=== PATIENT | female | born 1940 | race Caucasian/White ===

== ENCOUNTER 2018-05-06 17:52 | Inpatient (IN) ==
[2018-05-06] MEDS ORDERED: 0.9 % Sodium Chloride 1,000 ML IVC ONE ×2 (18:16→19:01)
[2018-05-06] MEDS ORDERED: cefTRIAXone 2,000 MG in 0.9 % Sodium Chloride Mini Bag 100 ML IVPB ONE (18:18)
[2018-05-06] MEDS ORDERED: Piperacillin/Tazobactam 3.375 GM in 0.9 % Sodium Chloride Mini Bag 100 ML IVPB ONE (18:20)
[2018-05-06] MEDS ORDERED: Ketorolac 30 MG/ML VIAL IVP ONE (18:20)
--- NOTE | 2018-05-06 18:20 | Emergency Department Note ---
Disposition Clinical Impression: Elevated troponin Right upper lobe pneumonia Qualifiers: Pneumonia type: due to unspecified organism Qualified Code(s): J18.1 - Lobar pneumonia, unspecified organism Disposition: Admitted As Inpatient Condition: Good General Adult HPI - General Chief complaint: ED Neuro Symptoms/Deficit Stated complaint: difficulty talking,congestion Time Seen by Provider: 05/06/18 18:16 - History of Present Illness Pain Scale: 0 - Related Data Home Medications Medication Instructions Recorded Confirmed ARIPiprazole [Abilify] 2 mg PO DAILY 12/26/16 05/06/18 Cholecalciferol (D-3) [Vitamin D] 1,000 unit PO DAILY 12/26/16 05/06/18 Flaxseed Oil 1,000 mg PO DAILY 12/26/16 05/06/18 LORazepam [Ativan] 2 mg PO BID 12/26/16 05/06/18 Lansoprazole [Prevacid] 15 mg PO BIDAC 12/26/16 05/06/18 Magnesium Oxide [Magnesium] 400 mg PO DAILY 12/26/16 05/06/18 Niacin [Niaspan] 500 mg PO BID 12/26/16 05/06/18 Propranolol HCl [Innopran Xl] 120 mg PO BID 12/26/16 05/06/18 Topiramate [Topamax] 25 mg PO DAILY 12/26/16 05/06/18 Buspirone HCl [Buspar] 15 mg PO BID 05/06/18 05/06/18 Methylphenidate HCl [Ritalin] 10 mg PO DAILY 05/06/18 05/06/18 SUMAtriptan succinate [Imitrex] 50 mg PO DAILY PRN 05/06/18 05/06/18 Previous Rx's Medication Instructions Recorded Exemestane [Aromasin] 25 mg PO DAILY #90 tablet 09/04/17 Allergies Allergy/AdvReac Type Severity Reaction Status Date / Time No Known Allergies Allergy Verified 05/06/18 18:08 Course Vital Signs Temperature 103.1 F H 05/06/18 18:03 Pulse Rate 94 05/06/18 18:03 Respiratory Rate 18 05/06/18 18:03 Blood Pressure 140/97 05/06/18 18:03 O2 Sat by Pulse Oximetry 92 05/06/18 18:03 Temperature 100.4 F H 05/06/18 18:34 Pulse Rate 78 05/06/18 20:23 Respiratory Rate 16 05/06/18 20:23 Blood Pressure 100/53 05/06/18 20:23 O2 Sat by Pulse Oximetry 94 05/06/18 20:23 Oxygen Delivery Oxygen Delivery Room Air Medical Decision Making - Lab Data Result diagrams: 05/06/18 18:40 05/06/18 18:40 Lab Results 05/06/18 05/06/18 05/06/18 Range/Units 18:40 18:40 18:40 WBC 23.0 H (4.3-11.1) K/mcL RBC 5.69 H (3.82-4.97) M/mcL Hgb 16.0 H (11.5-15.4) g/dL Hct 47.9 H (35.3-44.9) % MCV 84.2 (83.0-100.0) fL MCH 28.1 (28.0-33.3) pg MCHC 33.4 (31.6-35.5) g/dL RDW 14.6 H (11.5-14.5) % Plt Count 222 (140-400) K/mcL MPV 11.4 (9.4-12.4) fL Immature Gran % 1.3 (0-4) % Seg Neutrophils % 86.4 % Lymphocytes % 5.3 % Monocytes % 6.7 % Eosinophils % 0.0 % Basophils % 0.3 % Neutrophils # 19.9 H (1.6-8.9) K/mcL Lymphocytes # 1.2 (0.6-4.6) K/mcL Monocytes # 1.5 H (0.0-1.3) K/mcL Eosinophils # 0.0 (0.0-0.6) K/mcL Basophils # 0.1 (0.0-0.2) K/mcL PT 15.3 H (9.4-12.1) Seconds INR 1.4 APTT 32.2 (26.0-36.0) Seconds Sodium 135 L (136-145) mEq/L Potassium 2.5 L* (3.5-5.1) mEq/L Chloride 91 L (98-107) mEq/L Carbon Dioxide 30 H (23-29) mEq/L BUN 17 (8-23) mg/dL Creatinine 1.34 H (0.60-1.20) mg/dL Est GFR ( Amer) 46 L (> 60) Est GFR (Non-Af Amer) 38 L (> 60) BUN/Creatinine Ratio 13 (6-26) Glucose 146 H (70-105) mg/dL Calculated Osmolality 284 (280-300) Calcium 9.6 (8.6-10.3) mg/dL Total Bilirubin 3.2 H (0.3-1.0) mg/dL Direct Bilirubin 1.5 H (0.0-0.2) mg/dL Indirect Bilirubin 1.7 H (0.0-1.2) mg/dL AST 25 (13-39) Units/L ALT 15 (7-52) Units/L Alkaline Phosphatase 83 (34-104) Units/L Ammonia (16-53) mcmol/L Troponin I 0.10 H* (< 0.04) ng/mL Serum Total Protein 7.3 (6.4-8.9) g/dL Albumin 3.8 (3.5-5.7) g/dL Globulin 3.5 (2.4-3.5) g/dL Albumin/Globulin Ratio 1.1 (1.1-2.2) TSH 1.143 (0.340-5.600) mcIU/mL Urine Color (Yellow) Urine Clarity (Clear) Urine pH (5.0-8.0) pH Units Ur Specific [place] (1.010-1.025) Urine Protein (Neg-Trace) mg/dL Urine Glucose (UA) (Normal) mg/dL Urine Ketones (Negative) mg/dL Urine Blood (Negative) Urine Nitrite (Negative) Urine Bilirubin (Negative) Urine Urobilinogen (Normal) mg/dL Ur Leukocyte Esterase (Negative) Ur Drug Screen Interp 05/06/18 05/06/18 05/06/18 Range/Units 18:40 20:03 20:03 WBC (4.3-11.1) K/mcL RBC (3.82-4.97) M/mcL Hgb (11.5-15.4) g/dL Hct (35.3-44.9) % MCV (83.0-100.0) fL MCH (28.0-33.3) pg MCHC (31.6-35.5) g/dL RDW (11.5-14.5) % Plt Count (140-400) K/mcL MPV (9.4-12.4) fL Immature Gran % (0-4) % Seg Neutrophils % % Lymphocytes % % Monocytes % % Eosinophils % % Basophils % % Neutrophils # (1.6-8.9) K/mcL Lymphocytes # (0.6-4.6) K/mcL Monocytes # (0.0-1.3) K/mcL Eosinophils # (0.0-0.6) K/mcL Basophils # (0.0-0.2) K/mcL PT (9.4-12.1) Seconds INR APTT (26.0-36.0) Seconds Sodium (136-145) mEq/L Potassium (3.5-5.1) mEq/L Chloride (98-107) mEq/L Carbon Dioxide (23-29) mEq/L BUN (8-23) mg/dL Creatinine (0.60-1.20) mg/dL Est GFR ( Amer) (> 60) Est GFR (Non-Af Amer) (> 60) BUN/Creatinine Ratio (6-26) Glucose (70-105) mg/dL Calculated Osmolality (280-300) Calcium (8.6-10.3) mg/dL Total Bilirubin (0.3-1.0) mg/dL Direct Bilirubin (0.0-0.2) mg/dL Indirect Bilirubin (0.0-1.2) mg/dL AST (13-39) Units/L ALT (7-52) Units/L Alkaline Phosphatase (34-104) Units/L Ammonia 22 (16-53) mcmol/L Troponin I (< 0.04) ng/mL Serum Total Protein (6.4-8.9) g/dL Albumin (3.5-5.7) g/dL Globulin (2.4-3.5) g/dL Albumin/Globulin Ratio (1.1-2.2) TSH (0.340-5.600) mcIU/mL Urine Color [place] A (Yellow) Urine Clarity Cloudy A (Clear) Urine pH 5.5 (5.0-8.0) pH Units Ur Specific [place] 1.022 (1.010-1.025) Urine Protein >=300 H (Neg-Trace) mg/dL Urine Glucose (UA) 100 H (Normal) mg/dL Urine Ketones 15 H (Negative) mg/dL Urine Blood Large H (Negative) Urine Nitrite Positive A (Negative) Urine Bilirubin Moderate H (Negative) Urine Urobilinogen Normal (Normal) mg/dL Ur Leukocyte Esterase Moderate H (Negative) Ur Drug Screen Interp See Below Critical Care Time Critical Care Time: Yes Total Critical Care Time: 33 Attestation: acute altered mental status; Attestation Statement - Attestation Attestation: Dr Starks : Pt seen in conjunction w/ Resident DR Hawkins; Please see his charting for complete documentation; I spent face to face time w/ the pt and agree w/ the pt 's treatment and disposition; pt admitted w/o hypoxia or tachypnea; decreased activity since yesterday, and slow to respond today; no focal neuro signs/sx; accepted by Dr Garrison @ 7:15 pm; Altered mental status improved; infiltrate noted on x ray; No chest pain; no n/v/d; elevated troponin noted; K+ noted; altered mental status since this am noted, intermittent, improved mental status ; poor focus/slow to respond @ home;
[2018-05-06] MEDS ORDERED: Ipratropium/Albuterol Neb 3 ML IH ONE (18:26)
[2018-05-06 18:57] LABS: Basophils # 0.1 K/mcL (0.0-0.2); Basophils % 0.3 %; Hematocrit 47.9 % (35.3-44.9); Immature Granulocytes % 1.3 % (0-4); Lymphocytes # 1.2 K/mcL (0.6-4.6); Lymphocytes % 5.3 %; Mean Corpuscular HGB Conc 33.4 g/dL (31.6-35.5); Mean Corpuscular Hemoglobin 28.1 pg (28.0-33.3); Mean Corpuscular Volume 84.2 fL (83.0-100.0); Mean Platelet Volume 11.4 fL (9.4-12.4); Monocytes # 1.5 K/mcL (0.0-1.3); Monocytes % 6.7 %; Neutrophils # 19.9 K/mcL (1.6-8.9); Platelet Count 222 K/mcL (140-400); Red Blood Count 5.69 M/mcL (3.82-4.97); Red Cell Distribution Width 14.6 % (11.5-14.5); Segmented Neutrophils % 86.4 %
[2018-05-06] MEDS ORDERED: Levofloxacin 750 MG/150 ML 750 MG/150 ML BAG IVPB ONE (19:00)
[2018-05-06 19:04] LABS: Prothrombin Time 15.3 Seconds (9.4-12.1)
[2018-05-06 19:05] LABS: INR 1.4
[2018-05-06 19:07] LABS: Activated Partial Thrombo Time 32.2 Seconds (26.0-36.0)
[2018-05-06 19:35] LABS: Albumin 3.8 g/dL (3.5-5.7); Albumin/Globulin Ratio 1.1 (1.1-2.2); Bilirubin,Direct 1.5 mg/dL (0.0-0.2); Bilirubin,Indirect 1.7 mg/dL (0.0-1.2); Bilirubin,Total 3.2 mg/dL (0.3-1.0); Calcium 9.6 mg/dL (8.6-10.3); Globulin 3.5 g/dL (2.4-3.5); Potassium 2.5 mEq/L (3.5-5.1); Thyroid Stimulating Hormone 1.143 mcIU/mL (0.340-5.600); Total Protein 7.3 g/dL (6.4-8.9)
[2018-05-06] MEDS ORDERED: Potassium Effervescent 25 MEQ TABLET.EFF PO ONE (19:52)
[2018-05-06] MEDS ORDERED: Aspirin 325 MG TABLET PO ONE (19:54)
[2018-05-06 20:20] LABS: Bilirubin,Urine Moderate (Negative); Blood,Urine Large (Negative); Clarity,Urine Cloudy (Clear); Color,Urine Orange (Yellow); Glucose,Urine (UA) 100 mg/dL (Normal); Ketones,Urine 15 mg/dL (Negative); Leukocyte Esterase,Urine Moderate (Negative); Nitrite,Urine Positive (Negative); PH,Urine 5.5 pH Units (5.0-8.0); Protein,Urine >=300 mg/dL (Neg-Trace); Specific Gravity,Urine 1.022 (1.010-1.025); Urobilinogen,Urine Normal (Normal)
[2018-05-06 20:24] LABS: Bacteria,Urine None Seen per hpf (None-Few); RBC,Urine 0-3 per hpf (0-3); Squamous Epithelial Cell,Urine Many per lpf (None-Few); WBC,Urine 30-50 per hpf (0-3)
[2018-05-06 20:44] LABS: Hyaline Casts,Urine Few per lpf (None-Few); Mucus,Urine Few (Few)
[2018-05-06 20:46] LABS: Amphetamine Screen,Urine Negative ng/mL (Cutoff=1000); Barbiturate Screen,Urine Negative ng/mL (Cutoff=200); Benzodiazepines Screen,Urine Positive ng/mL (Cutoff=200); Cannabinoid Screen,Urine Positive ng/mL (Cutoff = 50); Cocaine Screen,Urine Negative ng/mL (Cutoff= 300); Opiate Screen,Urine Positive ng/mL (Cutoff=300); Phencyclidine Screen,Urine Negative ng/mL (Cutoff=25)
[2018-05-06] MEDS ORDERED: Potassium Chloride 40 MEQ, Lidocaine 1% 2 ML in D5% in Water 500 ML IVPB ONE (21:45)
--- NOTE | 2018-05-06 22:08 | Internal Med History&Physical ---
<Jose Tellez Graham - Last Filed: 05/07/18 00:15> Date of Encounter: 05/07/18 Time of Encounter: 23:14 Internal Medicine - H&P: HPI Chief complaint: altered mental status Admitted From: Home Plans for Post Hospital Care: Home History of present illness: Ms. Dietrich is a 78 year old female with a past medical history of Depression, Hypertension, Breast Cancer, Hypercholesterolemia, Migraines who presented with the chief complaint of altered mental status. She was brought in by a family friend who states that for the past two days she has had trouble remembering things and completing sentences. At baseline she is A&Ox3. Denies slurred speech , facial droop, arm drop. Prior to this she has had 4-5 days of a chest cold. Admits to nonproductive cough, chest pain with cough but not with exertion or rest. Also complains of slight weakness. Patient's only surgical history is breast resection secondary to breast cancer. She does admit to intermittent tobacco use, moderate alcohol use and recreational marijuana use. Head CT in the emergency department was negative for acute process. Patient was febrile with temperature of 103, heart rate 92, white blood cell count 23. Chest x-ray in the emergency department showed right upper lobe opacification consistent with pneumonia. Urinalysis in the emergency department was significant for white blood cells and leukocyte esterase but also significant for squamous cells. EKG showed normal sinus rhythm with elevated voltage in the lateral leads consistent with left ventricular hypertrophy, not present on EKG from 2012. Troponin was elevated at 0.10. Potassium was reduced at 2.5, patient did receive 50 mEq oral potassium in the emergency department. One dose of Zosyn, 1 dose of Levaquin, 2 L normal saline were also given in the emergency department. Past Med Surg Social Fam HX - Family History Mother Hx Family Cardiac Disorders: Yes (pacemaker) Father Hx Family Cardiac Disorders: No Internal Medicine - H&P: Meds ARIPiprazole [Abilify] 2 mg PO DAILY 12/26/16 [History] Cholecalciferol (D-3) [Vitamin D] 1,000 unit PO DAILY 12/26/16 [History] Flaxseed Oil 1,000 mg PO DAILY 12/26/16 [History] LORazepam [Ativan] 2 mg PO BID 12/26/16 [History] Lansoprazole [Prevacid] 15 mg PO BIDAC 12/26/16 [History] Magnesium Oxide [Magnesium] 400 mg PO DAILY 12/26/16 [History] Niacin [Niaspan] 500 mg PO BID 12/26/16 [History] Propranolol HCl [Innopran Xl] 120 mg PO BID 12/26/16 [History] Topiramate [Topamax] 25 mg PO DAILY 12/26/16 [History] Exemestane [Aromasin] 25 mg PO DAILY #90 tablet 09/04/17 [Rx] Buspirone HCl [Buspar] 15 mg PO BID 05/06/18 [History] Methylphenidate HCl [Ritalin] 10 mg PO DAILY 05/06/18 [History] SUMAtriptan succinate [Imitrex] 50 mg PO DAILY PRN 05/06/18 [History] 3 Allergy/AdvReac Type Severity Reaction Status Date / Time No Known Allergies Allergy Verified 05/06/18 18:08 All Systems PM: A 10-system review of systems was performed and is negative for pertinent findings except as documented above in the HPI. - Constitutional Constitutional: fever(s), weakness - Cardiovascular Cardiovascular ROS IM: no dyspnea on exertion, no lightheadedness, no palpitations - Respiratory Respiratory: cough, pain with cough - Gastrointestinal Gastrointestinal: no abdominal pain - Genitourinary Genitourinary: no difficulty urinating, no urinary frequency, no urinary hesitancy, no urinary incontinence, no urinary urgency - Integumentary Integumentary IM: no rash - Neurological Neurological ROS: abnormal speech, memory loss, no abnormal movements, no behavioral changes, no focal weakness - Psychiatric Psychiatric: confusion - Constitutional Vitals: Temp Pulse Resp BP Pulse Ox 100.4 F H 77 18 122/73 92 05/06/18 18:34 05/06/18 21:39 05/06/18 21:39 05/06/18 21:39 05/06/18 21:39 Exam: Patient in no acute distress, alert and oriented 3 Cranial nerves II through XII intact Heart in regular rate and rhythm without murmur or gallop Lungs exhibited diffuse scattered wheeze and rhonchi with good expansion and no accessory muscle use Abdomen soft and nontender with normal bowel sounds and no organomegaly Bilateral lower extremities nonedematous Skin warm and dry Internal Med - H&P Results - Labs CBC & Chem 7: 05/06/18 18:40 05/06/18 18:40 - Assessment and plan (1) Sepsis Current Visit: Yes Status: Acute Assessment and plan: Patient presented for altered mental status with fever of 103, heart rate 92, white blood cell count 23, evidence for pneumonia on chest x-ray In the emergency department one dose of Zosyn, 1 dose of Levaquin, 2 L normal saline bolus were given Urinalysis positive for white blood cells and leukocyte esterase but also squamous cells Lactic acid 1.5 This is likely sepsis secondary to community-acquired pneumonia and possible UTI Plan Empiric antibiotics consisting of vancomycin, Zosyn, Levaquin Maintenance IV fluids 100 mL per hour Re-examine patient at 6 hours Qualifiers: Sepsis type: sepsis due to unspecified organism Qualified Code(s): A41.9 - Sepsis, unspecified organism (2) Right upper lobe pneumonia Current Visit: Yes Status: Acute Assessment and plan: Right upper lobe opacification found on chest x-ray Patient presented with chest cold 5 days with nonproductive cough Patient does not have aspiration risk and has not been hospitalized in the net last 90 days Exam significant for wheeze and rhonchi Plan Empiric antibiotics as seen above Qualifiers: Pneumonia type: due to unspecified organism Qualified Code(s): J18.1 - Lobar pneumonia, unspecified organism (3) UTI (urinary tract infection) Current Visit: Yes Status: Acute Assessment and plan: Patient is asymptomatic however did have altered mental status and abnormal UA on presentation Plan Empiric Antibiotics Repeat straight cath UA Qualifiers: Urinary tract infection type: acute cystitis Hematuria presence: without hematuria Qualified Code(s): N30.00 - Acute cystitis without hematuria (4) Altered mental status Current Visit: Yes Status: Acute Assessment and plan: Patient presented with witnessed altered mental status On my exam patient is alert and oriented 3 however family friend states that this patient has been forgetful and not completing sentences According to patient and family patient is A&Ox3 at baseline This is likely secondary to sepsis Head CT in the ED was negative for acute process Patient does not exhibit focal neuro deficits Plan Continue to monitor Qualifiers: Altered mental status type: disorientation Qualified Code(s): R41.0 - Disorientation, unspecified (5) Elevated troponin Current Visit: Yes Status: Acute Assessment and plan: Patient with elevated troponin of 0.10 on admission Patient does not complain of dyspnea on exertion, does complain of chest pain but only with cough Patient does not have cardiac history, she does mention remote cardiac procedure but she does not remember what it is, likely catheterization 1 dose aspirin given in the ED EKG and normal rate and rhythm with increased voltage and lateral leads consistent with left ventricular hypertrophy, new from 2011 Plan Cycle troponin every 6 hours Continuous Cardiac Monitoring Continue Monitoring (6) Hypertension Current Visit: Yes Status: Chronic Assessment and plan: Patient has chronic history of hypertension for which she takes propanolol Patient is not hypertensive here we will hold home med now and reevaluate and continue to monitor Qualifiers: Hypertension type: essential hypertension Qualified Code(s): I10 - Essential (primary) hypertension (7) Hyperlipidemia Current Visit: Yes Status: Chronic Assessment and plan: Patient has history of hyperlipidemia for which she takes nystatin We will hold nystatin here and reevaluate once stable Qualifiers: Hyperlipidemia type: unspecified Qualified Code(s): E78.5 - Hyperlipidemia , unspecified (8) Breast cancer, left breast Current Visit: No Status: Resolved Assessment and plan: Patient with history of breast cancer in remission for which she takes Aromasin We will hold home med here and reevaluate once stable Qualifiers: Breast location: unspecified site of breast Estrogen receptor status: unspecified Patient sex: female Qualified Code(s): C50.912 - Malignant neoplasm of unspecified site of left female breast (9) Hypokalemia Current Visit: Yes Status: Acute Assessment and plan: Patient presented with potassium of 2.5 50 mEq of oral potassium was given in the emergency department 40 mEq of IV potassium was given on the floor Magnesium ordered and pending Repeat chemistry pending Plan Continue to monitor chemistry and replace as necessary Patient on continuous cardiac monitoring (10) DVT prophylaxis Current Visit: Yes Status: Acute Assessment and plan: 5000 units subcutaneous heparin every 8 hours - Time Spent With Patient Total time spent is greater than 50% in coordination of care (as documented) at patient's floor/unit and/or counseling patient: <Buddy Jain - Last Filed: 05/07/18 07:55> Date of Encounter: 05/06/18 Internal Medicine - H&P: HPI History of present illness: Ms. Dietrich is a 78 year old female All Systems PM: A 10-system review of systems was performed and is negative for pertinent findings except as documented above in the HPI. - Constitutional Vitals: Temp Pulse Resp BP Pulse Ox 97.7 F 74 20 121/70 94 05/07/18 07:20 05/07/18 07:20 05/07/18 07:20 05/07/18 07:20 05/07/18 07:20 Internal Med - H&P Results - Labs CBC & Chem 7: 05/06/18 18:40 05/06/18 18:40 Labs: Cardiac Enzymes 05/07/18 05/07/18 Range/Units 01:05 06:49 Troponin I 0.09 H* 1.57 H* (< 0.04) ng/mL - Assessment and plan (1) Breast cancer, left breast Current Visit: No Status: Resolved Qualifiers: Breast location: unspecified site of breast Estrogen receptor status: unspecified Patient sex: female Qualified Code(s): C50.912 - Malignant neoplasm of unspecified site of left female breast (2) Right upper lobe pneumonia Current Visit: Yes Status: Acute Qualifiers: Pneumonia type: due to unspecified organism Qualified Code(s): J18.1 - Lobar pneumonia, unspecified organism (3) Elevated troponin Current Visit: Yes Status: Acute (4) Sepsis Current Visit: Yes Status: Acute Qualifiers: Sepsis type: sepsis due to unspecified organism Qualified Code(s): A41.9 - Sepsis, unspecified organism (5) UTI (urinary tract infection) Current Visit: Yes Status: Acute Qualifiers: Urinary tract infection type: acute cystitis Hematuria presence: without hematuria Qualified Code(s): N30.00 - Acute cystitis without hematuria (6) Hypertension Current Visit: Yes Status: Chronic Qualifiers: Hypertension type: essential hypertension Qualified Code(s): I10 - Essential (primary) hypertension (7) Hyperlipidemia Current Visit: Yes Status: Chronic Qualifiers: Hyperlipidemia type: unspecified Qualified Code(s): E78.5 - Hyperlipidemia , unspecified (8) Altered mental status Current Visit: Yes Status: Acute Qualifiers: Altered mental status type: disorientation Qualified Code(s): R41.0 - Disorientation, unspecified (9) Hypokalemia Current Visit: Yes Status: Acute (10) DVT prophylaxis Current Visit: Yes Status: Acute - Time Spent With Patient Total time spent is greater than 50% in coordination of care (as documented) at patient's floor/unit and/or counseling patient: - Attending Attestation Patient seen and examined. Case discussed with resident. Altered mental status in the absence of any focal findings and negative CT head likely secondary to underlying infectious process. We will treat more aggressively for community-acquired pneumonia given her elevated white blood cell count, fever and chest x-ray findings. Patient unable to produce any sputum at this time. Replete potassium and follow up chemistry. We will follow-up blood cultures. Elevated troponin in the absence of patient reported chest pain. Patient received loading dose of aspirin in the ED. We will trend troponin.
[2018-05-06 23:42] LABS: Magnesium 1.1 mg/dL (1.6-2.6)
[2018-05-07 00:08] LABS: Troponin I 0.1 ng/mL (< 0.04)
[2018-05-07] MEDS: Piperacillin/Tazobactam 3.375 GM in 0.9 % Sodium Chloride Mini Bag 100 ML IVPB SCH ×2 (00:12→08:36)
[2018-05-07] MEDS ORDERED: Naloxone 0.4 MG/ML INJ IVP PRN (00:36)
[2018-05-07] MEDS: 0.9 % Sodium Chloride 1,000 ML IVC SCH ×2 (01:28→14:29)
[2018-05-07] MEDS: *HR* Heparin 5,000 UNIT/ML VIAL SQ SCH ×3 (04:56→21:02)
[2018-05-07] MEDS: Benzonatate 100 MG CAPSULE PO PRN ×2 (04:56→14:26)
--- NOTE | 2018-05-07 06:06 | Sepsis Event Note ---
Sepsis Reassessment Note - Evaluation Sepsis Screen: No Definite Risk Current Stage of Sepsis: sepsis Possible Source of Sepsis: pulmonary - Focused Exam Date of Encounter: 05/07/18 Time of Encounter: 06:04 Vital Signs: Vital Signs Temp Pulse Resp BP Pulse Ox 05/07/18 04:00 98.0 F 74 20 108/68 95 05/07/18 00:22 77 20 120/61 94 05/06/18 21:39 98.1 F 77 18 122/73 92 Respiratory Exam: Present: wheezes, rhonchi. Absent: respiratory distress, accessory muscle use Cardiovascular Exam: Present: RRR. Absent: murmur, gallop Capillary Refill: < 2 seconds Peripheral Pulse Strength: 2+ slightly diminished Peripheral Pulse Location: Pedal Skin Exam: normal turgor - Reassessment Comments Comments: Patient clinically and hemodynamically stable, no longer tachycardic, afebrile
[2018-05-07] MEDS ORDERED: SUMAtriptan succinate 50 MG TABLET PO PRN (07:45)
[2018-05-07] MEDS ORDERED: Aminoglycoside Consult 1 EACH MC ONE (07:55)
[2018-05-07 08:17] LABS: Basophils # 0.1 K/mcL (0.0-0.2); Basophils % 0.3 %; Hematocrit 40.6 % (35.3-44.9); Hemoglobin 13.5 g/dL (11.5-15.4); Immature Granulocytes % 1.9 % (0-4); Lymphocytes # 1.6 K/mcL (0.6-4.6); Lymphocytes % 7.3 %; Mean Corpuscular HGB Conc 33.3 g/dL (31.6-35.5); Mean Corpuscular Hemoglobin 28.1 pg (28.0-33.3); Mean Corpuscular Volume 84.4 fL (83.0-100.0); Monocytes # 1.2 K/mcL (0.0-1.3); Monocytes % 5.6 %; Neutrophils # 18.8 K/mcL (1.6-8.9); Platelet Count 174 K/mcL (140-400); Red Blood Count 4.81 M/mcL (3.82-4.97); Red Cell Distribution Width 14.3 % (11.5-14.5); Segmented Neutrophils % 84.9 %
[2018-05-07] MEDS: Methylphenidate HCl 10 MG TABLET PO SCH (08:37)
[2018-05-07] MEDS: Propranolol LA (24 HR) 60 MG CAP.SA.24H PO SCH ×2 (08:37→21:02)
[2018-05-07 08:38] LABS: Albumin 2.9 g/dL (3.5-5.7); Albumin/Globulin Ratio 1.3 (1.1-2.2); Bilirubin,Total 2.8 mg/dL (0.3-1.0); Calcium 8.1 mg/dL (8.6-10.3); Globulin 2.3 g/dL (2.4-3.5); Total Protein 5.2 g/dL (6.4-8.9)
[2018-05-07] MEDS: Niacin (24 HR) 500 MG TAB.ER.24H PO SCH ×2 (08:38→21:02)
[2018-05-07] MEDS ORDERED: (Exemestane [Aromasin] 25 MG) PO SCH (09:00)
--- NOTE | 2018-05-07 10:12 | Internal Med Progress Note ---
Hospitalist Progress Note - Encounter Date of Encounter: 05/07/18 Time of Encounter: 09:00 - Subjective Interval History: Ms. Dietrich is a 78 year old female with a past medical history of Depression, Hypertension, Breast Cancer, Hypercholesterolemia, Migraines who presented with the chief complaint of altered mental status. She was brought in by a family friend who states that for the past two days she has had trouble remembering things and completing sentences. At baseline she is A&Ox3. Denies slurred speech , facial droop, arm drop. Prior to this she has had 4-5 days of a chest cold. Admits to nonproductive cough, chest pain with cough but not with exertion or rest. Also complains of slight weakness. Patient's only surgical history is breast resection secondary to breast cancer. She does admit to intermittent tobacco use, moderate alcohol use and recreational marijuana use. Head CT in the emergency department was negative for acute process. Patient was febrile with temperature of 103, heart rate 92, white blood cell count 23. Chest x-ray in the emergency department showed right upper lobe opacification consistent with pneumonia. Urinalysis in the emergency department was significant for white blood cells and leukocyte esterase but also significant for squamous cells. EKG showed normal sinus rhythm with elevated voltage in the lateral leads consistent with left ventricular hypertrophy, not present on EKG from 2012. Troponin was elevated at 0.10. Potassium was reduced at 2.5, patient did receive 50 mEq oral potassium in the emergency department. One dose of Zosyn, 1 dose of Levaquin, 2 L normal saline were also given in the emergency department. 05/07: Patient states she is having pleuritic chest pain with cough. Is a minimal productive cough. Mild shortness of breath. No fevers or chills. No nausea or vomiting. She denies any history of aspiration. She is much more alert today. He is currently denying any fevers or chills. She does state she feels very weak. ROS: Other than that mentioned above, a 10 point review of systems is negative. - Exam Vitals: Temp Pulse Resp BP Pulse Ox 97.7 F 74 20 121/70 94 05/07/18 07:20 05/07/18 07:20 05/07/18 07:20 05/07/18 07:20 05/07/18 07:20 Exam: Patient in no acute distress, alert and oriented 3, fatigued appearing Cranial nerves II through XII intact Heart in regular rate and rhythm without murmur or gallop Lungs exhibited diffuse scattered wheeze and rhonchi with good expansion and no accessory muscle use. Abdomen soft and nontender with normal bowel sounds and no organomegaly Bilateral lower extremities nonedematous Skin warm and dry Cap refill <2.5 sec Neuro Nonfocal - Assessment and Plan (1) Right upper lobe pneumonia Current Visit: Yes Status: Acute Assessment and Plan: Right upper lobe opacification found on chest x-ray Patient presented with chest cold 5 days with nonproductive cough Patient does not have aspiration risk and has not been hospitalized in the net last 90 days Exam significant for wheeze and rhonchi Plan Empiric antibiotics as seen above 05/07: No hx aspiration Day #2 Abx Zosyn/Rocpehin/Vancomycin/Levaquin received since admission I will de-escalate abx to Levaquin alone, now day #2 abx Request swallow eval to eval for aspiration risk Add mucolytic (2) Breast cancer, left breast Current Visit: No Status: Resolved Assessment and Plan: Patient with history of breast cancer in remission for which she takes Aromasin We will hold home med here and reevaluate once stable (3) Elevated troponin Current Visit: Yes Status: Acute Assessment and Plan: Patient with elevated troponin of 0.10 on admission Patient does not complain of dyspnea on exertion, does complain of chest pain but only with cough Patient does not have cardiac history, she does mention remote cardiac procedure but she does not remember what it is, likely catheterization 1 dose aspirin given in the ED EKG and normal rate and rhythm with increased voltage and lateral leads consistent with left ventricular hypertrophy, new from 2011 Plan Cycle troponin every 6 hours Continuous Cardiac Monitoring Continue Monitoring 05/07: This may be demand ischemia. Troponin is much higher than I would expect. She has no chest pain suggestive of acute [place]. She does have chest pain with cough only. No history of coronary artery disease but states she has had ablation for irregular heartbeat. I will consult cardiology for evaluation. Continue aspirin daily for now. EKG shows no acute ischemic ST-T wave changes. (4) Sepsis Current Visit: Yes Status: Acute Assessment and Plan: Patient presented for altered mental status with fever of 103, heart rate 92, white blood cell count 23, evidence for pneumonia on chest x-ray In the emergency department one dose of Zosyn, 1 dose of Levaquin, 2 L normal saline bolus were given Urinalysis positive for white blood cells and leukocyte esterase but also squamous cells Lactic acid 1.5 This is likely sepsis secondary to community-acquired pneumonia and possible UTI Plan Empiric antibiotics consisting of vancomycin, Zosyn, Levaquin Maintenance IV fluids 100 mL per hour Re-examine patient at 6 hours 05/07: Sepsis is resolving (5) UTI (urinary tract infection) Current Visit: Yes Status: Acute Assessment and Plan: Patient is asymptomatic however did have altered mental status and abnormal UA on presentation Plan Empiric Antibiotics Repeat straight cath UA 05/07: Day #2 antibiotics, currently Levaquin. Await culture and sensitivity results. (6) Hypertension Current Visit: Yes Status: Chronic Assessment and Plan: Patient has chronic history of hypertension for which she takes propanolol Patient is not hypertensive here we will hold home med now and reevaluate and continue to monitor (7) Hyperlipidemia Current Visit: Yes Status: Chronic Assessment and Plan: Patient has history of hyperlipidemia for which she is on a statin We will hold nystatin here and reevaluate once stable (8) Altered mental status Current Visit: Yes Status: Acute Assessment and Plan: Patient presented with witnessed altered mental status On my exam patient is alert and oriented 3 however family friend states that this patient has been forgetful and not completing sentences According to patient and family patient is A&Ox3 at baseline This is likely secondary to sepsis Head CT in the ED was negative for acute process Patient does not exhibit focal neuro deficits Plan Continue to monitor 05/07: Resolving Other than thinking she is in a different hospital she is awake alert and oriented. She understands why she is here. (9) Hypokalemia Current Visit: Yes Status: Acute Assessment and Plan: Patient presented with potassium of 2.5 50 mEq of oral potassium was given in the emergency department 40 mEq of IV potassium was given on the floor Magnesium ordered and pending Repeat chemistry pending Plan Continue to monitor chemistry and replace as necessary Patient on continuous cardiac monitoring (10) DVT prophylaxis Current Visit: Yes Status: Acute Assessment and Plan: 5000 units subcutaneous heparin every 8 hours - Time Spent with Patient Total time spent is greater than 50% in coordination of care (as documented) at patient's floor/unit and/or counseling patient: Internal Medicine: Result - Labs CBC & Chem 7: 05/07/18 07:57 05/07/18 07:57 Labs: Short CBC 05/07/18 Range/Units 07:57 WBC 22.1 H (4.3-11.1) K/mcL Hgb 13.5 D (11.5-15.4) g/dL Hct 40.6 (35.3-44.9) % Plt Count 174 (140-400) K/mcL Neutrophils # 18.8 H (1.6-8.9) K/mcL BMP 05/07/18 07:57 Sodium 138 Potassium 3.0 L Chloride 105 Carbon Dioxide 23 BUN 20 Creatinine 1.10 Glucose 98 Calcium 8.1 L Cardiac Enzymes 05/07/18 05/07/18 Range/Units 01:05 06:49 Troponin I 0.09 H* 1.57 H* (< 0.04) ng/mL Liver Function 05/07/18 Range/Units 07:57 Total Bilirubin 2.8 H (0.3-1.0) mg/dL AST 24 (13-39) Units/L ALT 13 (7-52) Units/L Alkaline Phosphatase 57 (34-104) Units/L Albumin 2.9 L (3.5-5.7) g/dL - ABG Interpretation ABG results: PT/INR, D-dimer PT 15.3 Seconds (9.4-12.1) H 05/06/18 18:40 Consult Discharge Plan - Plan Referrals: Wayne Schneider MD [Primary Care Provider] - (1) Right upper lobe pneumonia Qualifiers: Pneumonia type: due to unspecified organism Qualified Code(s): J18.1 - Lobar pneumonia, unspecified organism (2) Breast cancer, left breast Qualifiers: Breast location: unspecified site of breast Estrogen receptor status: unspecified Patient sex: female Qualified Code(s): C50.912 - Malignant neoplasm of unspecified site of left female breast (4) Sepsis Qualifiers: Sepsis type: sepsis due to unspecified organism Qualified Code(s): A41.9 - Sepsis, unspecified organism (5) UTI (urinary tract infection) Qualifiers: Urinary tract infection type: acute cystitis Hematuria presence: without hematuria Qualified Code(s): N30.00 - Acute cystitis without hematuria (6) Hypertension Qualifiers: Hypertension type: essential hypertension Qualified Code(s): I10 - Essential (primary) hypertension (7) Hyperlipidemia Qualifiers: Hyperlipidemia type: unspecified Qualified Code(s): E78.5 - Hyperlipidemia, unspecified (8) Altered mental status Qualifiers: Altered mental status type: disorientation Qualified Code(s): R41.0 - Disorientation, unspecified
[2018-05-07] MEDS ORDERED: 0.9 % Sodium Chloride 1,000 ML IVC SCH (10:30)
--- NOTE | 2018-05-07 12:51 | Cardiology Consult Note ---
Date of Encounter: 05/07/18 Time of Encounter: 12:00 Assessment and Plan (1) Elevated troponin Current Visit: Yes Status: Acute Troponin 0.10, 0.09, 1.57 in the setting of sepsis d/t RUL and UTI; mild BRYAN upon presentation. T max past 24 hours 103. Suspect secondary to demand ischemia, however ACS cannot be ruled out. No typical chest pain symptoms reported; reports pleuritic chest discomfort, occurs with cough only. No acute ECG changes noted. Discussed with patient; DNRCC-DNI, given lack of symptoms she prefer to treat medically. Continue asa and BB. Will start low dose statin. Check echocardiogram to evaluate structure and function. No indication for cardiac rehab at this time. Will continue to follow. (2) Right upper lobe pneumonia Current Visit: Yes Status: Acute Improved. On IV ATB. Mgmt per primary service. Qualifiers: Pneumonia type: due to unspecified organism Qualified Code(s): J18.1 - Lobar pneumonia, unspecified organism Discussion w patient/family: The assessment and plan as outlined above was discussed with the patient and/or family members who expressed understanding and agreement. All questions were answered. Thank you for involving us in the care of your patient. Please call with any questions. The patient will be discussed and reviewed with Dr. Hui; changes to be made accordingly. History of Present Illness Consult date: 05/07/18 Requesting physician: Mervin Carrasco Consult reason: Elevated troponin Chief complaint: AMS, cough History of present illness: Ms. Dietrich is a 78 year old female with PMHx significant of JONEL, breast CA s/p mastectomy, HTN, and bipolar depression who presented to the ED with complaints of AMS that had been ongoing for a few days prior to admission. Upon admission to ED, concern for sepsis given elevated HR/WBC and fever. Imagining demonstrated RUL PNA and also found to have UTI. Mental status improved upon exam, she is alert and oriented x3. Cardiology consulted for elevated troponin--0.10, 0.09, 1.57. No ST/T wave abnormalities noted. No chest pain upon exam--reports reproducible chest discomfort that occurs with cough only. No recent CV testing. She reports hx of cardiac ablation (x4 areas of ablation) ~15 years ago at [facility]. Past Med Surg Social Fam HX - Past Medical History Attestation: Yes The following information was validated with the patient. Source: patient Medical history: GERD, hypertension, other (hx of cardiac arrhythmia) Psychiatric history: anxiety, depression - Past Surgical History Surgical History: other (hx of ablation) - Social History Smoking Status: Current some day smoker Packs per day: 0.25 Smokeless Tobacco Status: No Alcohol use: none Drug use: marijuana - Family History Mother Living Status: Cause of : breast CA Hx Family Cardiac Disorders: Yes (Hx of SSS s/p PPM) Hx Family Cancer: Yes (breast CA) Father History Unknown: Yes Living Status: Cause of : unknown Hx Family Cardiac Disorders: No Medications and Allergies ARIPiprazole [Abilify] 2 mg PO DAILY 12/26/16 [History] Cholecalciferol (D-3) [Vitamin D] 1,000 unit PO DAILY 12/26/16 [History] Flaxseed Oil 1,000 mg PO DAILY 12/26/16 [History] LORazepam [Ativan] 2 mg PO BID 12/26/16 [History] Lansoprazole [Prevacid] 15 mg PO BIDAC 12/26/16 [History] Magnesium Oxide [Magnesium] 400 mg PO DAILY 12/26/16 [History] Niacin [Niaspan] 500 mg PO BID 12/26/16 [History] Propranolol HCl [Innopran Xl] 120 mg PO BID 12/26/16 [History] Topiramate [Topamax] 25 mg PO DAILY 12/26/16 [History] Exemestane [Aromasin] 25 mg PO DAILY #90 tablet 09/04/17 [Rx] Buspirone HCl [Buspar] 15 mg PO BID 05/06/18 [History] Methylphenidate HCl [Ritalin] 10 mg PO DAILY 05/06/18 [History] SUMAtriptan succinate [Imitrex] 50 mg PO DAILY PRN 05/06/18 [History] 3 Allergy/AdvReac Type Severity Reaction Status Date / Time No Known Allergies Allergy Verified 05/06/18 18:08 All Systems Review: The remainder of the systems were reviewed and are negative - Cardiovascular Cardiovascular: as per HPI Physical Examination Vital Signs, Last 4 Hours Pulse Resp BP Pulse Ox 05/07/18 12:22 82 20 192/118 93 General: Conversant, Other (fine tremor noted) Cardiac: Reg Rate and Rhythm, Normal S1 and S2 Lungs: Other (Decreased breath sounds) Neuro: Alert and responsive Abdomen: Soft Skin: No rashes noted on visualized skin Musculoskeletal: No Chest Wall Tenderness Extremities: No Edema, Normal Pulses Results 05/07/18 07:57 05/07/18 07:57 Lab Results 05/07/18 05/07/18 05/07/18 01:05 06:49 07:57 WBC 22.1 H Hgb 13.5 D Hct 40.6 Plt Count 174 Sodium Potassium Chloride Carbon Dioxide BUN Creatinine Glucose Calcium Total Bilirubin AST ALT Alkaline Phosphatase Troponin I 0.09 H* 1.57 H* 05/07/18 05/07/18 07:57 10:56 WBC Hgb Hct Plt Count Sodium 138 Potassium 3.0 L Chloride 105 Carbon Dioxide 23 BUN 20 Creatinine 1.10 Glucose 98 Calcium 8.1 L Total Bilirubin 2.8 H AST 24 ALT 13 Alkaline Phosphatase 57 Troponin I 0.05 H* Active Medications Aspirin (Aspirin Ec) 81 mg PO DAILY ON LICENSE OF [facility] Stop: 11/06/18 13:01 Benzonatate (Tessalon) 100 mg PO Q8HR PRN PRN Reason: Cough Stop: 11/06/18 04:40 Last Admin: 05/07/18 04:56 Dose: 100 mg Guaifenesin (Mucinex) 600 mg PO BID PRN PRN Reason: Congestion Stop: 11/06/18 10:23 Heparin Sodium (Porcine) (Heparin) 5,000 unit SQ Q8HCO ON LICENSE OF [facility] Stop: 11/06/18 06:01 Last Admin: 05/07/18 04:56 Dose: 5,000 unit Levofloxacin/Dextrose (Levaquin Premix 750mg/150 Ml) 750 mg in 150 mls @ 100 mls/hr IVPB Q48H ON LICENSE OF [facility] PRN Reason: Protocol Stop: 11/07/18 09:01 Sodium Chloride (0.9 % Sodium Chloride) 1,000 mls @ 100 mls/hr IVC .Q10H ON LICENSE OF [facility] Stop: 11/06/18 00:01 Last Infusion: 05/07/18 10:56 Dose: Infused Sodium Chloride (0.9 % Sodium Chloride) 1,000 mls @ 50 mls/hr IVC .Q20H ON LICENSE OF [facility] Stop: 11/06/18 10:31 Last Admin: 05/07/18 11:00 Dose: 50 mls/hr Lansoprazole (Prevacid) 15 mg PO BIDAC MARA PRN Reason: Protocol Stop: 11/06/18 16:31 Methylphenidate HCl (Ritalin) 10 mg PO DAILY MARA Stop: 11/06/18 09:01 Last Admin: 05/07/18 08:37 Dose: 10 mg Naloxone HCl (Narcan) 0.4 mg IVP Q2MIN PRN PRN Reason: SEE COMMENTS Stop: 11/06/18 00:37 Niacin (Niaspan) 500 mg PO BID MARA Stop: 11/06/18 09:01 Last Admin: 05/07/18 08:38 Dose: 500 mg Pharmacy Profile Note (Patient Taking Own Medication) 1 each PO DAILY ON LICENSE OF [facility] Stop: 11/06/18 09:01 Propranolol HCl (Inderal La) 120 mg PO BID ON LICENSE OF [facility] Stop: 11/06/18 09:01 Last Admin: 05/07/18 08:37 Dose: 120 mg Sumatriptan Succinate (Imitrex) 50 mg PO DAILY PRN PRN Reason: Migraine Headache Stop: 11/06/18 07:46 - Imaging and Cardiology Echo: pending Other Results: 12 hour tele: avg HR=77 SR. Few PACs. - EKG Interpretation EKG results cardiology: personally reviewed Consult Discharge Plan - Plan Referrals: Wayne Schneider MD [Primary Care Provider] -
[2018-05-07] MEDS: Aspirin Enteric Coated 81 MG Tablet PO SCH (13:48)
[2018-05-07] MEDS: GuaiFENesin/Codeine Oral Soln 5 ML UDC PO PRN ×2 (17:06→21:10)
[2018-05-08] MEDS ORDERED: *HR* LORazepam 0.5 MG TABLET PO ONE (00:20)
[2018-05-08] MEDS: Ipratropium/Albuterol Neb 3 ML IH PRN ×3 (02:02→22:54)
[2018-05-08 04:57] LABS: Basophils # 0.1 K/mcL (0.0-0.2); Basophils % 0.3 %; Hemoglobin 13.6 g/dL (11.5-15.4); Immature Granulocytes % 1.3 % (0-4); Lymphocytes # 0.8 K/mcL (0.6-4.6); Lymphocytes % 3.5 %; Mean Corpuscular HGB Conc 32.4 g/dL (31.6-35.5); Mean Corpuscular Hemoglobin 27.3 pg (28.0-33.3); Mean Corpuscular Volume 84.2 fL (83.0-100.0); Mean Platelet Volume 12.8 fL (9.4-12.4); Monocytes % 4.1 %; Neutrophils # 20.8 K/mcL (1.6-8.9); Platelet Count 191 K/mcL (140-400); Red Blood Count 4.99 M/mcL (3.82-4.97); Red Cell Distribution Width 14.6 % (11.5-14.5); Segmented Neutrophils % 90.8 %
[2018-05-08 05:15] LABS: BUN/Creatinine Ratio 22 (6-26); Blood Urea Nitrogen 19 mg/dL (8-23); Calcium 8.7 mg/dL (8.6-10.3); Carbon Dioxide 20 mEq/L (23-29); Chloride 103 mEq/L (98-107); Glucose 126 mg/dL (70-105); Osmolality,Calculated 286 (280-300); Potassium 2.7 mEq/L (3.5-5.1); Sodium 136 mEq/L (136-145); eGFR For Non-African Americans > 60 (> 60)
[2018-05-08 05:28] LABS: Thyroid Stimulating Hormone 1.593 mcIU/mL (0.340-5.600)
[2018-05-08] MEDS: *HR* Heparin 5,000 UNIT/ML VIAL SQ SCH ×3 (06:19→21:46)
[2018-05-08] MEDS: Aspirin Enteric Coated 81 MG Tablet PO SCH (08:40)
[2018-05-08] MEDS: Propranolol LA (24 HR) 60 MG CAP.SA.24H PO SCH ×2 (08:40→21:45)
[2018-05-08] MEDS: Methylphenidate HCl 10 MG TABLET PO SCH (08:41)
[2018-05-08] MEDS: Niacin (24 HR) 500 MG TAB.ER.24H PO SCH ×3 (08:41→21:49)
[2018-05-08] MEDS: Exemestane [Aromasin] 25 MG PO SCH (08:43)
[2018-05-08] MEDS ORDERED: Levofloxacin 750 MG/150 ML 750 MG/150 ML BAG IVPB SCH ×2 (09:00)
--- NOTE | 2018-05-08 09:57 | Internal Med Progress Note ---
<Rose Padgett - Last Filed: 05/08/18 11:36> Hospitalist Progress Note - Encounter Date of Encounter: 05/08/18 Time of Encounter: 08:00 - Subjective Interval History: Ms. Dietrich is a very pleasant 78 year old female with a past medical history significant for HTN, HLD, Breast CA and migraines who presented to [facility] on with altered mental status, Right upper lobe pneumonia confirmed on CXR and possible UTI.This is hospitalization day number 3. The patient was seen and examined at bedside this morning. No acute events were reported overnight. Today , patient states she is still having shortness of breath, pleuritic chest pain and non-productive cough. She has also developed diarrhea from her antibiotics. She said she has had 5-6 episodes overnight and has had fecal incontinence. Patient still has hypokalemia as per AM labs - K 2.7. Patient also says she has been having difficulty sleeping. She usually takes her home ativan at night to help her sleep. She was given a one time dose last night and it helped. The patient denies any lightheadedness, dizziness, vision changes, headache, palpitations, sputum production, abdominal pain, nausea, vomiting, urinary changes, edema, fever or chills. - Exam Vitals: Temp Pulse Resp BP Pulse Ox 98.1 F 74 18 157/99 94 05/08/18 07:31 05/08/18 07:31 05/08/18 07:31 05/08/18 07:31 05/08/18 07:31 Exam: GENERAL: Patient is a well-nourished 78 year old female in no acute distress. A& Ox3. HEENT: Head is normocephalic, atraumatic, well formed. EYES: PERRLA, EOMI. MOUTH : Oropharynx clear. Mucous membranes moist. NECK: Supple, no masses, trachea midline. No JVD noted. CV: Regular rate and rhythm. Normal S1, S2 with no clicks, murmurs, gallops, or rubs. PULMONARY: End expiratory wheezes heard bilaterally. Symmetrical chest expansion. Moderate effort. Accessory respiratory muscle use. GI: Abdomen is soft, nondistended, nontender, positive bowel sounds x 4 present and appropriate. No peritoneal signs or guarding. No palpable masses. SKIN: Warm, dry and intact. No rashes, bruising, cyanosis or non healing lesions are seen. No edema is noted. NEUROLOGICAL: Alert, awake. CN II-XII grossly intact. Patient is moving all extremities and following commands appropriately. No focal deficits are noted. Muscle strength 5/5 x 4 extremities. VASCULAR/EXTREMITIES: No cyanosis, clubbing, or edema in lower extremities. - Assessment and Plan (1) Right upper lobe pneumonia Current Visit: Yes Status: Acute Assessment and Plan: Right upper lobe opacification found on CXR. Patient had a chest cold for 4-5 days prior to admission with non-productive cough. Patient passed her swallow exam and does not have an aspiration risk. She has not been hospitalized in the last 90 days. Patient still presents with diffuse expiration wheezing bilaterally on exam. Patient was de-escalated to Levaquin monotherapy yesterday. She says that she is still short of breath and having a non- productive cough despite starting mucinex yesterday. Patient also has developed diarrhea since starting antibiotics. She has had 5-6 episodes overnight including some fecal incontinence. - Continue Mucinex 600mg PO BID PRN and add N-Acetylcysteine (Mucomist) - If Patient begins to have productive cough - sputum gram stain and culture - Duonebs Q4H PRN - Levaquin IV Q48H - Blood Cultures pending - Collect stool sample for C. Diff testing - will put on contact precautions until C. Diff testing comes back. - If C. Diff testing comes back negative, can treat diarrhea symptomatically with Loperamide. (2) Elevated troponin Current Visit: Yes Status: Acute Assessment and Plan: Patient had an elevated troponoin of 0.10 on admission She also was having pleuritic chest pain. Patient does not have dyspnea on exertion and only has chest pain associated with her cough. Patient has no signfiicant cardiac history although she does have a history of a cardiac procedure that she does not remember what it is. It was likely a catheterization. Patient has LVH on her EKG that is new since her last documented EKG in 2011. Cardiology was consulted. Patient does not wish to undergo invasive catheterization at this time. Cardiology recommend continuing her low dose statin, aspirin and beta ofelia and possibly doing a TTE. This may be demand ischemia secondary to her acute lung processes. Will continue aspirin, statin and beta ofelia. Will continue cardiac monitoring. Subsequent Troponin levels showed: 0.10 --> 0.09 -- > 1.57 --> 0.05. Suspect that the 1.57 was a false positive since all other troponin levels were trending down. Will order a TTE. (3) Sepsis Current Visit: Yes Status: Acute Assessment and Plan: Patient presented with altered mental status, fever of 103, heart rate of 92, WBC 23 and evidence of right upper lobe pneumonia on CXR. In the ED, Patient received 1 dose of zosyn, levaquin and 2L NSS bolus. UA was positive for WBC and Leukocyte esterase but also squamous cells. Lactic Acid was 1.5. Likely sepsis secondary to CAP and possibly UTI. Yesterday patient was de-escalated from Vancomycin + Zosyn + Levaquin to Levaquin monotherapy because she passed her swallow eval and did not have any risk for aspiration or MRSA. Patient's sepsis is resolving. She has been afebrile overnight. Her WBC are 13.6. Her pulse has not been tachycardic. - Continue Levaquin monotherapy - Continue maintenance fluids - Regular vital checks (4) UTI (urinary tract infection) Current Visit: Yes Status: Acute Assessment and Plan: Patient was asymptomatic upon admission but did have altered mental status and abnormal UA positive for WBC, leukocyte esterase but also squamous cells. - Empiric antibiotics - Day #3 antibiotics currently on Levaquin monotherapy - Repeat Straight Cath UA- does not appear to be done yesterday since there is no new UA results or record of the repeat cath. Will reorder UA culture from first UA results. (5) Hypertension Current Visit: Yes Status: Chronic Assessment and Plan: Chronic HTN history. Takes propanolol. Patient is not currently hypertensive. Will continue home medication dose as per cardiology. (6) Hyperlipidemia Current Visit: Yes Status: Chronic Assessment and Plan: Patient has a chronic history of HLD. Cardiology has started her on Atorvastatin 20 mg PO HS. Will continue this as per cardio. (7) Altered mental status Current Visit: Yes Status: Acute Assessment and Plan: Patient presented with AMS and family stated that she has been forgetful and not comppleting sentences. Patient's altered mental status has resolved likely secondary to antibiotic treatment for her pneumonia. She is A&Ox3 and reports being able to think clearly and is able to vocalize why she is in the hospital and what is going on. Head CT in the ED was negative for acute processes. Patient does not exhibit any focal neurological deficits. - Will continue to monitor. (8) Hypokalemia Current Visit: Yes Status: Acute Assessment and Plan: Patient presented with hypokalemia 2.5 --> 3.0 --> 2.7 She is still hypokalemic on AM labs (2.7). Patient was also found to have low Mg at 1.1. - 40 mEq of PO KCl BID - Replace Mg (9) DVT prophylaxis Current Visit: Yes Status: Acute Assessment and Plan: 5000U SQ Heparin (10) Antibiotic-associated diarrhea Current Visit: Yes Status: Acute Assessment and Plan: Patient has develope diarrhea secondary to her antibiotics (Vanc, Zosyn, Levaquin). Will collect stool sample for C. Diff testing. (11) Insomnia Current Visit: Yes Status: Chronic Assessment and Plan: Patient takes Ativan PRN at home for insonmnia and PRN during the day for anxiety. It was being held and she was having trouble sleeping so she received one dose last night. It helped. Will restart her home dose of Ativan PRN. DVT Prophylaxis: 5000U SQ Heparin Q8H - Time Spent with Patient Total time spent is greater than 50% in coordination of care (as documented) at patient's floor/unit and/or counseling patient: 25 - 35 minutes Plan of Care Discussed with: patient Internal Medicine: Result - Labs CBC & Chem 7: 05/08/18 03:55 05/08/18 03:55 Labs: Short CBC 05/08/18 Range/Units 03:55 WBC 22.9 H (4.3-11.1) K/mcL Hgb 13.6 (11.5-15.4) g/dL Hct 42.0 (35.3-44.9) % Plt Count 191 (140-400) K/mcL Neutrophils # 20.8 H (1.6-8.9) K/mcL BMP 05/08/18 03:55 Sodium 136 Potassium 2.7 L Chloride 103 Carbon Dioxide 20 L BUN 19 Creatinine 0.87 Glucose 126 H Calcium 8.7 - ABG Interpretation ABG results: PT/INR, D-dimer PT 15.3 Seconds (9.4-12.1) H 05/06/18 18:40 Consult Discharge Plan - Plan Referrals: Wayne Schneider MD [Primary Care Provider] - <Mervin Carrasco - Last Filed: 05/08/18 16:52> Hospitalist Progress Note - Encounter Date of Encounter: 05/08/18 - Exam Vitals: Temp Pulse Resp BP Pulse Ox 97.7 F 83 19 116/63 95 05/08/18 11:05 05/08/18 16:28 05/08/18 16:28 05/08/18 16:28 05/08/18 16:28 - Assessment and Plan (1) Right upper lobe pneumonia Current Visit: Yes Status: Acute (2) Breast cancer, left breast Current Visit: No Status: Resolved (3) Elevated troponin Current Visit: Yes Status: Acute (4) Sepsis Current Visit: Yes Status: Acute (5) UTI (urinary tract infection) Current Visit: Yes Status: Acute (6) Hypertension Current Visit: Yes Status: Chronic (7) Hyperlipidemia Current Visit: Yes Status: Chronic (8) Altered mental status Current Visit: Yes Status: Acute (9) Hypokalemia Current Visit: Yes Status: Acute (10) DVT prophylaxis Current Visit: Yes Status: Acute - Time Spent with Patient Total time spent is greater than 50% in coordination of care (as documented) at patient's floor/unit and/or counseling patient: Internal Medicine: Result - Labs CBC & Chem 7: 05/08/18 03:55 05/08/18 03:55 Labs: Short CBC 05/08/18 Range/Units 03:55 WBC 22.9 H (4.3-11.1) K/mcL Hgb 13.6 (11.5-15.4) g/dL Hct 42.0 (35.3-44.9) % Plt Count 191 (140-400) K/mcL Neutrophils # 20.8 H (1.6-8.9) K/mcL BMP 05/08/18 03:55 Sodium 136 Potassium 2.7 L Chloride 103 Carbon Dioxide 20 L BUN 19 Creatinine 0.87 Glucose 126 H Calcium 8.7 - ABG Interpretation ABG results: PT/INR, D-dimer PT 15.3 Seconds (9.4-12.1) H 05/06/18 18:40 - Attending Attestation I performed an independent interview and examin of this patient. I agree with the findings, assessment, and plan of Roya Padgett, MEdical Student. Patient states is improved. She continues have a cough which is minimally productive. She also is having loose stools upwards of 5-7 per day. I does today she states she has only had one. She is being tested for C. difficile. Patient states she always gets diarrhea with antibiotics but denies c diff history. Patient continues to have a elevated white blood cell count. She is showing improvement. She is afebrile. Continue with Levaquin, she is currently day #3 of this. Exam: Gen NAD, but ill appearing (still an improved appearance from admission) OP Moist Neck supple Lung dimin bs bilat bases Ht RRR Abd soft +BS, NT Ext tr edema Neuro nonfocal <Rose Padgett M - Last Filed: 05/08/18 11:36> (1) Right upper lobe pneumonia Qualifiers: Pneumonia type: due to unspecified organism Qualified Code(s): J18.1 - Lobar pneumonia, unspecified organism (3) Sepsis Qualifiers: Sepsis type: sepsis due to unspecified organism Qualified Code(s): A41.9 - Sepsis, unspecified organism (4) UTI (urinary tract infection) Qualifiers: Urinary tract infection type: acute cystitis Hematuria presence: without hematuria Qualified Code(s): N30.00 - Acute cystitis without hematuria (5) Hypertension Qualifiers: Hypertension type: essential hypertension Qualified Code(s): I10 - Essential (primary) hypertension (6) Hyperlipidemia Qualifiers: Hyperlipidemia type: unspecified Qualified Code(s): E78.5 - Hyperlipidemia, unspecified (7) Altered mental status Qualifiers: Altered mental status type: disorientation Qualified Code(s): R41.0 - Disorientation, unspecified <Mervni Carrasco R - Last Filed: 05/08/18 16:52> (1) Right upper lobe pneumonia Qualifiers: Pneumonia type: due to unspecified organism Qualified Code(s): J18.1 - Lobar pneumonia, unspecified organism (2) Breast cancer, left breast Qualifiers: Breast location: unspecified site of breast Estrogen receptor status: unspecified Patient sex: female Qualified Code(s): C50.912 - Malignant neoplasm of unspecified site of left female breast (4) Sepsis Qualifiers: Sepsis type: sepsis due to unspecified organism Qualified Code(s): A41.9 - Sepsis, unspecified organism (5) UTI (urinary tract infection) Qualifiers: Urinary tract infection type: acute cystitis Hematuria presence: without hematuria Qualified Code(s): N30.00 - Acute cystitis without hematuria (6) Hypertension Qualifiers: Hypertension type: essential hypertension Qualified Code(s): I10 - Essential (primary) hypertension (7) Hyperlipidemia Qualifiers: Hyperlipidemia type: unspecified Qualified Code(s): E78.5 - Hyperlipidemia, unspecified (8) Altered mental status Qualifiers: Altered mental status type: disorientation Qualified Code(s): R41.0 - Disorientation, unspecified
--- NOTE | 2018-05-08 11:24 | Cardiology Progress Note ---
Date of Encounter: 05/08/18 Time of Encounter: 11:00 Assessment and Plan (1) Elevated troponin Current Visit: Yes Status: Acute Troponin 0.10, 0.09, 1.57 in the setting of sepsis d/t RUL and UTI; mild BRYAN upon presentation. T max past 24 hours 103. Suspect secondary to demand ischemia, however ACS cannot be ruled out. ? Myocarditis. No typical chest pain symptoms reported; reports pleuritic chest discomfort, occurs with cough only. No acute ECG changes noted. Discussed with patient; DNRCC-DNI, given lack of symptoms she prefer to treat medically. Continue asa, statin, and BB. Run of AT noted this AM--likely d/t breathing tx. Asymptomatic. TTE shows preserved LVEF with normal wall motion, mild RV hypokinesis. No indication for cardiac rehab at this time. No further testing recommended, patient has declined further evaluation. Will coordinate outpatient follow-up with [facility] in 2-3 weeks. (2) Right upper lobe pneumonia Current Visit: Yes Status: Acute Improved. On IV ATB. Mgmt per primary service. Qualifiers: Pneumonia type: due to unspecified organism Qualified Code(s): J18.1 - Lobar pneumonia, unspecified organism Discussion w patient/family: The assessment and plan as outlined above was discussed with the patient and/or family members who expressed understanding and agreement. All questions were answered. Thank you for involving us in the care of your patient. Please call with any questions. The patient will be discussed and reviewed with Dr. Pennington; changes to be made accordingly. Subjective Principal diagnosis: PNA, sepsis, elevated troponin Interval history: Seen and examined. No complaints upon exam today aside from feeling tired. Has not slept well since admission. Continues to have pleuritic chest pain--occurs with cough only. Otherwise no CV complaints. Objective Vital Signs, Last 4 Hours Temp Pulse Resp BP Pulse Ox 05/08/18 11:05 97.7 F 74 17 137/83 96 05/08/18 07:31 98.1 F 74 18 157/99 94 General: Conversant, No Apparent Distress HEENT: Atraumatic, Normocephaly, Mucus Membranes Moist Cardiac: Reg Rate and Rhythm, Normal S1 and S2 Lungs: Other (Decreased bibasilar; crackles RUL) Neuro: Alert and responsive Abdomen: Soft Skin: No rashes noted on visualized skin Musculoskeletal: No Chest Wall Tenderness Extremities: No Edema, Normal Pulses Results 05/08/18 03:55 05/08/18 03:55 Lab Results 05/08/18 05/08/18 03:55 03:55 WBC 22.9 H Hgb 13.6 Hct 42.0 Plt Count 191 Sodium 136 Potassium 2.7 L Chloride 103 Carbon Dioxide 20 L BUN 19 Creatinine 0.87 Glucose 126 H Calcium 8.7 TSH 1.593 Active Medications Albuterol/Ipratropium (Duoneb) 3 ml IH [id number] PRN PRN Reason: Shortness Of Breath/Wheezing Stop: 11/07/18 01:53 Last Admin: 05/08/18 02:02 Dose: 3 ml Aspirin (Aspirin Ec) 81 mg PO DAILY [facility] Stop: 11/06/18 13:01 Last Admin: 05/08/18 08:40 Dose: 81 mg Atorvastatin Calcium (Lipitor) 20 mg PO HS [facility] Stop: 11/06/18 21:01 Last Admin: 05/07/18 21:02 Dose: 20 mg Benzonatate (Tessalon) 100 mg PO Q8HR PRN PRN Reason: Cough Stop: 11/06/18 04:40 Last Admin: 05/07/18 14:26 Dose: 100 mg Guaifenesin (Mucinex) 600 mg PO BID PRN PRN Reason: Congestion Stop: 11/06/18 10:23 Guaifenesin/Codeine Phosphate (Robitussin W/Codeine) 10 ml PO Q6H PRN; Protocol PRN Reason: Cough Stop: 11/06/18 15:06 Last Admin: 05/07/18 21:10 Dose: 10 ml Heparin Sodium (Porcine) (Heparin) 5,000 unit SQ Q8HCO [facility] Stop: 11/06/18 06:01 Last Admin: 05/08/18 06:19 Dose: 5,000 unit Levofloxacin/Dextrose (Levaquin Premix 750mg/150 Ml) 750 mg in 150 mls @ 100 mls/hr IVPB Q48H [facility] PRN Reason: Protocol Stop: 11/07/18 09:01 Last Admin: 05/08/18 08:54 Dose: 100 mls/hr Lansoprazole (Prevacid) 15 mg PO BIDAC [facility] PRN Reason: Protocol Stop: 11/06/18 16:31 Last Admin: 05/08/18 08:40 Dose: 15 mg Methylphenidate HCl (Ritalin) 10 mg PO DAILY [facility] Stop: 11/06/18 09:01 Last Admin: 05/08/18 08:41 Dose: Not Given Naloxone HCl (Narcan) 0.4 mg IVP Q2MIN PRN PRN Reason: SEE COMMENTS Stop: 11/06/18 00:37 Niacin (Niaspan) 500 mg PO BID [facility] Stop: 11/06/18 09:01 Last Admin: 05/08/18 08:41 Dose: 500 mg Pharmacy Profile Note (Patient Taking Own Medication) 1 each PO DAILY [facility] Stop: 11/06/18 09:01 Last Admin: 05/08/18 08:43 Dose: Not Given Potassium Chloride (Potassium Chloride) 40 meq PO BID [facility] Stop: 11/07/18 09:01 Last Admin: 05/08/18 09:24 Dose: 40 meq Propranolol HCl (Inderal La) 120 mg PO BID [facility] Stop: 11/06/18 09:01 Last Admin: 05/08/18 08:40 Dose: 120 mg Sumatriptan Succinate (Imitrex) 50 mg PO DAILY PRN PRN Reason: Migraine Headache Stop: 11/06/18 07:46 Impressions Echocardiogram 05/07/18 12:50 Impressions: LVEF 50-55%. Mildly dilated right ventricle. Mild right ventricular hypokinesis. Mildly dilated left atrium. Trace tricuspid regurgitation. Unable to estimate RVSP due to lack of TR jet. Left Ventricular Wall Motion: Rest Echo Findings All wall segments showed normal motion. Findings: Study Quality * Technically adequate exam. ECG Findings * Normal sinus rhythm. Left Ventricle * LVEF 50-55%. * Normal LV chamber size, wall thickness and function. * Normal left ventricular diastolic function. Right Ventricle * Mildly dilated right ventricle. * Mild right ventricular hypokinesis. Left Atrium * Mildly dilated left atrium. Right Atrium * Normal right atrial size. Interatrial Septum * No evidence of PFO by color Doppler. Aortic Valve * Trileaflet aortic valve. * Normal aortic valve structure. * No aortic regurgitation. * No aortic stenosis. Mitral Valve * Mildly thickened mitral valve leaflets. * Trace mitral regurgitation. * No mitral stenosis. Tricuspid Valve * Normal tricuspid valve structure. * Trace tricuspid regurgitation. * No tricuspid stenosis. * Unable to estimate RVSP due to lack of TR jet. Pulmonic Valve * Normal pulmonic valve structure. * No pulmonic regurgitation. Aorta * Normally sized aortic root. Pericardium * The pericardium appears normal. IVC * Normal IVC dimensions and inspiratory collapse. Pulmonary Artery * Normal visualized portions of the main pulmonary artery. - Imaging and Cardiology Echo: report reviewed Other Results: 12 hour tele: avg HR=81 SR. Run of AT noted. - EKG Interpretation EKG results cardiology: personally reviewed Consult Discharge Plan - Plan Referrals: Wayne Schneider MD [Primary Care Provider] -
[2018-05-08] MEDS: Acetylcysteine 10% 2 ML INHSOL IH SCH ×2 (14:34→22:54)
[2018-05-08] MEDS: Magnesium Oxide 400 MG TABLET PO SCH (14:38)
[2018-05-08] MEDS: *HR* LORazepam 1 MG TABLET PO PRN (21:45)
[2018-05-08] MEDS ORDERED: Ondansetron 4 MG/2 ML VIAL IVP PRN (21:54)
[2018-05-09] MEDS: Ipratropium/Albuterol Neb 3 ML IH PRN ×2 (03:30→11:07)
[2018-05-09] MEDS: Acetylcysteine 10% 2 ML INHSOL IH SCH ×4 (03:32→19:58)
[2018-05-09 04:46] LABS: Bilirubin,Urine Negative (Negative); Blood,Urine Negative (Negative); Clarity,Urine Clear (Clear); Color,Urine Dark Yellow (Yellow); Glucose,Urine (UA) Normal (Normal); Ketones,Urine Negative (Negative); Leukocyte Esterase,Urine Negative (Negative); Nitrite,Urine Negative (Negative); Protein,Urine 30 mg/dL (Neg-Trace); Specific Gravity,Urine 1.026 (1.010-1.025); Urobilinogen,Urine Normal (Normal)
[2018-05-09 04:48] LABS: Bacteria,Urine None Seen per hpf (None-Few); Hyaline Casts,Urine None Seen per lpf (None-Few); Squamous Epithelial Cell,Urine Moderate per lpf (None-Few)
[2018-05-09] MEDS: *HR* Heparin 5,000 UNIT/ML VIAL SQ SCH ×3 (06:54→21:21)
[2018-05-09] MEDS: Aspirin Enteric Coated 81 MG Tablet PO SCH (09:45)
[2018-05-09] MEDS: Propranolol LA (24 HR) 60 MG CAP.SA.24H PO SCH ×2 (09:45→21:19)
[2018-05-09] MEDS: Magnesium Oxide 400 MG TABLET PO SCH (09:45)
[2018-05-09] MEDS: Methylphenidate HCl 10 MG TABLET PO SCH (09:46)
[2018-05-09] MEDS: Niacin (24 HR) 500 MG TAB.ER.24H PO SCH ×3 (09:46→21:30)
[2018-05-09] MEDS: Exemestane [Aromasin] 25 MG PO SCH ×2 (09:47→18:03)
[2018-05-09] MEDS: Levofloxacin 750 MG/150 ML 750 MG/150 ML BAG IVPB SCH (09:47)
--- NOTE | 2018-05-09 10:11 | Internal Med Progress Note ---
<Mervin Carrasco - Last Filed: 05/09/18 13:50> Hospitalist Progress Note - Encounter Date of Encounter: 05/09/18 - Exam Vitals: Temp Pulse Resp BP Pulse Ox 98.5 F 85 15 117/68 96 05/09/18 11:25 05/09/18 11:25 05/09/18 11:25 05/09/18 11:25 05/09/18 11:25 - Assessment and Plan (1) Right upper lobe pneumonia Current Visit: Yes Status: Acute (2) Breast cancer, left breast Current Visit: No Status: Resolved (3) Elevated troponin Current Visit: Yes Status: Acute (4) Sepsis Current Visit: Yes Status: Acute (5) UTI (urinary tract infection) Current Visit: Yes Status: Acute (6) Hypertension Current Visit: Yes Status: Chronic (7) Hyperlipidemia Current Visit: Yes Status: Chronic (8) Altered mental status Current Visit: Yes Status: Acute (9) Hypokalemia Current Visit: Yes Status: Acute (10) DVT prophylaxis Current Visit: Yes Status: Acute - Time Spent with Patient Total time spent is greater than 50% in coordination of care (as documented) at patient's floor/unit and/or counseling patient: Internal Medicine: Result - Labs CBC & Chem 7: 05/08/18 03:55 05/08/18 03:55 Labs: Urine 05/09/18 Range/Units 04:25 Urine Color Dark Yellow (Yellow) Urine Clarity Clear (Clear) Urine pH 6.0 (5.0-8.0) pH Units Ur Specific Milner 1.026 H (1.010-1.025) Urine Protein 30 H (Neg-Trace) mg/dL Urine Glucose (UA) Normal (Normal) mg/dL - ABG Interpretation ABG results: PT/INR, D-dimer PT 15.3 Seconds (9.4-12.1) H 05/06/18 18:40 - Impressions Impressions Chest X-Ray 05/09/18 08:17 IMPRESSION: 1. Worsening right upper lobe consolidation with right paratracheal stripe thickening concerning for adenopathy. 2. Indeterminate nodular opacity left upper lobe. Recommend dedicated CT imaging with IV contrast. D/ / 05/09/2018 09:33:36 Joaquín Higgins MD / azam Interpreting Provider: Joaquín Higgins MD Consult Discharge Plan - Plan Referrals: Wayne Schneider MD [Primary Care Provider] - - Attending Attestation I performed an independent interview and exam of this patient. I agree with the findings, assessment and plan of Roya Padgett, medical student. Patient has persistent leukocytosis. Her CAT scan rule out postobstructive pneumonia, underlying mass. Also experiencing antibiotics to include Zosyn. She is not improving with therapy. We will also consult pulmonary medicine for an opinion. Diarrhea resolved. Gen: Ill appearing, NAD Lung - dimin bs bases Ht RRR Abd - soft +BS, NT Ext-no sig edema Neuro - nonfocal <Mara Padgettah M - Last Filed: 05/09/18 15:01> Hospitalist Progress Note - Encounter Date of Encounter: 05/09/18 Time of Encounter: 08:30 - Subjective Interval History: Ms. Dietrich is a very pleasant 78 year old female with a past medical history significant for HTN, HLD, Left Breast CA and migraines who presented to [facility] on 05/06/18 with altered mental status, Right upper lobe pneumonia confirmed on CXR and possible UTI.This is hospitalization day number 4. The patient was seen and examined at bedside this morning. Patient had some nausea but no vomiting when she took her potassium pills last night. It resolved with some zofran. Today, patient states she is still having shortness of breath, and pleuritic chest pain. These have not improved. She now has a productive cough with sputum. She is unclear of the color. She is still having diarrhea. Her C. diff test came back negative. Patient was able to sleep well with her PRN ativan dose. The patient denies any lightheadedness, dizziness, vision changes, headache, palpitations, abdominal pain, vomiting, urinary changes, edema, fever or chills. - Exam Vitals: Temp Pulse Resp BP Pulse Ox 98.5 F 73 15 125/64 99 05/09/18 06:31 05/09/18 06:31 05/09/18 06:31 05/09/18 06:31 05/09/18 06:31 Exam: GENERAL: Patient is a well-nourished 78 year old female in mild respiratory distress. A&Ox3. HEENT: Head is normocephalic, atraumatic, well formed. EYES: PERRLA, EOMI. MOUTH : Oropharynx clear. Mucous membranes moist. NECK: Supple, no masses, trachea midline. No JVD noted. CV: Regular rate and rhythm. Normal S1, S2 with no clicks, murmurs, gallops, or rubs. PULMONARY: Breath sounds are diminished in the right upper lobe. Scattered wheezes and rales are also heard bilaterally. Symmetrical chest expansion. Moderate effort. Accessory respiratory muscle use. GI: Abdomen is soft, nondistended, nontender, positive bowel sounds x 4 present and appropriate. No peritoneal signs or guarding. No palpable masses. SKIN: Warm, dry and intact. No rashes, bruising, cyanosis or non healing lesions are seen. No edema is noted. NEUROLOGICAL: Alert, awake. CN II-XII grossly intact. Patient is moving all extremities and following commands appropriately. No focal deficits are noted. Muscle strength 5/5 x 4 extremities. VASCULAR/EXTREMITIES: No cyanosis, clubbing, or edema in lower extremities. - Assessment and Plan (1) Right upper lobe pneumonia Current Visit: Yes Status: Acute Assessment and Plan: Right upper lobe consolidation found on CXR at admission. Patient had a chest cold for 4-5 days prior to admission with non-productive cough. Patient passed her swallow exam and does not have an aspiration risk. She has not been hospitalized in the last 90 days. Patient was de-escalated to Levaquin monotherapy 2 days ago. Patient reports that she is still experiencing shortness of breath and pleuritic chest pain with cough. She has not improved clinically. Her cough is now productive but she cannot remember what color her sputum is. CXR from today showed worsening right upper lobe consolidation with associated volume loss. Left upper lobe nodular opacity was also seen. This opacity was also present on the first CXR upon admission. Radiology recommends CT with contrast for further evaluation. Will tell patient about left upper lobe opacity seen on CXR and recommend following up with a cereal maker as outpatient - Continue Mucinex 600mg PO BID PRN and N-Acetylcysteine (Mucomist) - Will order Sputum gram stain and culture - Continue Duonebs Q4H PRN - ABX Day #4: Levaquin IV Q48H --> Adding Zosyn to extend coverage of antibiotics since patient has not responded clinically to current treatment. - Ordering MRSA Screen - Ordering CT Chest W/WO contrast - to check for abscess/obstruction since patient does not appear to be improving clinically with antibiotic therapy - Blood Cultures still pending (2) Elevated troponin Current Visit: Yes Status: Acute Assessment and Plan: Patient had an elevated troponoin of 0.10 on admission She also was having pleuritic chest pain. Patient does not have dyspnea on exertion and only has chest pain associated with her cough. Patient has no signfiicant cardiac history although she does have a history of a cardiac procedure that she does not remember what it is. It was likely a catheterization. Patient has LVH on her EKG that is new since her last documented EKG in 2011. Cardiology was consulted. Patient does not wish to undergo invasive catheterization at this time. Cardiology recommend continuing her low dose statin, aspirin and beta ofelia and possibly doing a TTE. This may be demand ischemia secondary to her acute lung processes. Will continue aspirin, statin and beta ofelia. Will continue cardiac monitoring. Subsequent Troponin levels showed: 0.10 --> 0.09 -- > 1.57 --> 0.05. Suspect that the 1.57 was a false positive since all other troponin levels were trending down. TTE showed preserved LVEF with normal wall motion and mild RV hypokinesis. Cardio does not recommend cardiac rehab at this time. Patient declined further evaluation. Cardio recommends following up as an outpatient at [facility] within 2-3 weeks of discharge. (3) Hypokalemia Current Visit: Yes Status: Acute Assessment and Plan: Patient presented with hypokalemia 2.5 --> 3.0 --> 2.7 She is still hypokalemic on AM labs ___. Patient was also found to have low Mg at 1.1. Patient had nausea last night when taking her potassium pills and was almost not able to keep them down. She was able to keep them down with some zofran. - Will switch from 40 mEq of PO KCl BID to IV KCl 40 mEq - Will switch from 400 mg PO Mag Ox DAILY to IV Magnesium 20mEq (4) Antibiotic-associated diarrhea Current Visit: Yes Status: Acute Assessment and Plan: Patient developed diarrhea 2 days ago. She was placed on contact precautions and tested for c. diff. C. diff came back negative. Patient still reports she is having frequent diarrhea overnight and this AM. Contact precautions have been d/c. Will order loperamide for patient's antibiotic associated diarrhea (5) Sepsis Current Visit: Yes Status: Resolved Assessment and Plan: Patient presented with altered mental status, fever of 103, heart rate of 92, WBC 23 and evidence of right upper lobe pneumonia on CXR. In the ED, Patient received 1 dose of zosyn, levaquin and 2L NSS bolus. UA was positive for WBC and Leukocyte esterase but also squamous cells. Lactic Acid was 1.5. Likely sepsis secondary to CAP and possibly UTI. Patient was de-escalated from Vancomycin + Zosyn + Levaquin to Levaquin monotherapy 2 days ago because she passed her swallow eval and did not have any risk for aspiration or MRSA. Patient's sepsis is resolving. She has been afebrile x 2 days. Her pulse has not been tachycardic. Her WBC remain elevated at . CXR shows worsening right upper lobe pneumonia. UA shows UTI is resolving, it no longer contains blood, nitrates, leukocyte esterase and WBC in the UA have decreased significantly from 30-50 to 3-5. Patient is having a productive cough after mucomist. Culture and gram stain of sputum is pending. - Continue Levaquin monotherapy until sputum gram stain and culture results return. - Continue maintenance fluids - Regular vital checks (6) UTI (urinary tract infection) Current Visit: Yes Status: Resolved Assessment and Plan: Patient was asymptomatic upon admission but did have altered mental status and abnormal UA positive for WBC, leukocyte esterase, blood, nitrates, but also squamous cells. Repeat UA showed that patient has responded to Levaquin and she no longer has leukocyte esterase, blood, or nitrates in her urine. Her UA WBC have also decreased from 30-50 to 3-5. - Empiric antibiotics - Day #4 antibiotics currently on Levaquin monotherapy - will continue this until sputum and gram stain results come back then will change antibiotics to better treat her worsening pneumonia. (7) Altered mental status Current Visit: Yes Status: Acute Assessment and Plan: Patient presented with AMS and family stated that she has been forgetful and not completing sentences. Patient's altered mental status has resolved likely secondary to antibiotic treatment for her pneumonia and UTI. Today patient is still A&Ox3 and reports being able to think clearly and is able to vocalize why she is in the hospital and what is going on. Head CT in the ED was negative for acute processes. Patient does not exhibit any focal neurological deficits. - Will continue to monitor. (8) Hypertension Current Visit: Yes Status: Chronic Assessment and Plan: Chronic HTN history. Takes propanolol. Patient is not currently hypertensive. Will continue home medication dose as per cardiology. (9) Hyperlipidemia Current Visit: Yes Status: Chronic Assessment and Plan: Patient has a chronic history of HLD. Cardiology has started her on Atorvastatin 20 mg PO HS. Will continue this as per cardio. (10) DVT prophylaxis Current Visit: Yes Status: Acute Assessment and Plan: 5000U SQ Heparin Q8H - Time Spent with Patient Total time spent is greater than 50% in coordination of care (as documented) at patient's floor/unit and/or counseling patient: 25 - 35 minutes Plan of Care Discussed with: patient Internal Medicine: Result - Labs CBC & Chem 7: 05/08/18 03:55 05/08/18 03:55 Labs: Urine 05/09/18 Range/Units 04:25 Urine Color Dark Yellow (Yellow) Urine Clarity Clear (Clear) Urine pH 6.0 (5.0-8.0) pH Units Ur Specific Milner 1.026 H (1.010-1.025) Urine Protein 30 H (Neg-Trace) mg/dL Urine Glucose (UA) Normal (Normal) mg/dL - ABG Interpretation ABG results: PT/INR, D-dimer PT 15.3 Seconds (9.4-12.1) H 05/06/18 18:40 - Impressions Impressions Chest X-Ray 05/09/18 08:17 IMPRESSION: 1. Worsening right upper lobe consolidation with right paratracheal stripe thickening concerning for adenopathy. 2. Indeterminate nodular opacity left upper lobe. Recommend dedicated CT imaging with IV contrast. D/ / 05/09/2018 09:33:36 Joaquín Higgins MD / azam Interpreting Provider: Joaquín Higgins MD <CarrascoMervin blas R - Last Filed: 05/09/18 13:50> (1) Right upper lobe pneumonia Qualifiers: Pneumonia type: due to unspecified organism Qualified Code(s): J18.1 - Lobar pneumonia, unspecified organism (2) Breast cancer, left breast Qualifiers: Breast location: unspecified site of breast Estrogen receptor status: unspecified Patient sex: female Qualified Code(s): C50.912 - Malignant neoplasm of unspecified site of left female breast (4) Sepsis Qualifiers: Sepsis type: sepsis due to unspecified organism Qualified Code(s): A41.9 - Sepsis, unspecified organism (5) UTI (urinary tract infection) Qualifiers: Urinary tract infection type: acute cystitis Hematuria presence: with hematuria Qualified Code(s): N30.01 - Acute cystitis with hematuria (6) Hypertension Qualifiers: Hypertension type: essential hypertension Qualified Code(s): I10 - Essential (primary) hypertension (7) Hyperlipidemia Qualifiers: Hyperlipidemia type: unspecified Qualified Code(s): E78.5 - Hyperlipidemia, unspecified (8) Altered mental status Qualifiers: Altered mental status type: disorientation Qualified Code(s): R41.0 - Disorientation, unspecified <Rose Padgett M - Last Filed: 05/09/18 15:01> (1) Right upper lobe pneumonia Qualifiers: Pneumonia type: due to unspecified organism Qualified Code(s): J18.1 - Lobar pneumonia, unspecified organism (5) Sepsis Qualifiers: Sepsis type: sepsis due to unspecified organism Qualified Code(s): A41.9 - Sepsis, unspecified organism (6) UTI (urinary tract infection) Qualifiers: Urinary tract infection type: acute cystitis Hematuria presence: with hematuria Qualified Code(s): N30.01 - Acute cystitis with hematuria (7) Altered mental status Qualifiers: Altered mental status type: disorientation Qualified Code(s): R41.0 - Disorientation, unspecified (8) Hypertension Qualifiers: Hypertension type: essential hypertension Qualified Code(s): I10 - Essential (primary) hypertension (9) Hyperlipidemia Qualifiers: Hyperlipidemia type: unspecified Qualified Code(s): E78.5 - Hyperlipidemia, unspecified
[2018-05-09] MEDS ORDERED: Potassium Chloride 40 MEQ, Lidocaine 1% 2 ML in D5% in Water 500 ML IVPB ONE (10:41)
[2018-05-09] MEDS ORDERED: Isovue-370 500 ML INFUS..BTL IV ONE (13:56)
[2018-05-09 15:04] LABS: Basophils # 0.1 K/mcL (0.0-0.2); Basophils % 0.7 %; Eosinophils # 0.1 K/mcL (0.0-0.6); Eosinophils % 0.8 %; Hematocrit 39.4 % (35.3-44.9); Hemoglobin 12.5 g/dL (11.5-15.4); Immature Granulocytes % 1.4 % (0-4); Lymphocytes % 7.2 %; Mean Corpuscular HGB Conc 31.7 g/dL (31.6-35.5); Mean Corpuscular Volume 85.1 fL (83.0-100.0); Monocytes # 0.8 K/mcL (0.0-1.3); Monocytes % 5.7 %; Neutrophils # 12.2 K/mcL (1.6-8.9); Platelet Count 216 K/mcL (140-400); Red Blood Count 4.63 M/mcL (3.82-4.97); Red Cell Distribution Width 14.9 % (11.5-14.5); Segmented Neutrophils % 84.2 %
[2018-05-09 15:05] LABS: BUN/Creatinine Ratio 20 (6-26); Blood Urea Nitrogen 17 mg/dL (8-23); Calcium 9.3 mg/dL (8.6-10.3); Carbon Dioxide 28 mEq/L (23-29); Chloride 105 mEq/L (98-107); Glucose 150 mg/dL (70-105); Osmolality,Calculated 290 (280-300); Potassium 3.4 mEq/L (3.5-5.1); Sodium 138 mEq/L (136-145); eGFR For Non-African Americans > 60 (> 60)
[2018-05-09] MEDS: Ipratropium/Albuterol Neb 3 ML IH SCH ×2 (16:37→19:58)
[2018-05-09] MEDS: *HR* LORazepam 1 MG TABLET PO PRN (23:31)
[2018-05-10] MEDS: GuaiFENesin/Codeine Oral Soln 5 ML UDC PO PRN (00:41)
[2018-05-10] MEDS ORDERED: *HR* Labetalol 20 MG/4 ML SYRINGE IVP ONE (02:05)
[2018-05-10] MEDS ORDERED: 0.9 % Sodium Chloride 500 ML IVC ONE (02:55)
[2018-05-10] MEDS: *HR* Heparin 5,000 UNIT/ML VIAL SQ SCH ×3 (04:24→22:11)
[2018-05-10] MEDS: Ipratropium/Albuterol Neb 3 ML IH SCH ×4 (04:29→23:01)
[2018-05-10] MEDS: Acetylcysteine 10% 2 ML INHSOL IH SCH ×4 (04:30→23:01)
[2018-05-10] MEDS: Propranolol LA (24 HR) 60 MG CAP.SA.24H PO SCH ×2 (08:12→22:10)
[2018-05-10] MEDS: Magnesium Oxide 400 MG TABLET PO SCH (08:12)
[2018-05-10] MEDS: Levofloxacin 750 MG/150 ML 750 MG/150 ML BAG IVPB SCH (08:13)
[2018-05-10] MEDS: Aspirin Enteric Coated 81 MG Tablet PO SCH (08:13)
[2018-05-10] MEDS: Methylphenidate HCl 10 MG TABLET PO SCH (08:28)
[2018-05-10] MEDS: Niacin (24 HR) 500 MG TAB.ER.24H PO SCH ×2 (08:28→22:10)
[2018-05-10] MEDS: Exemestane [Aromasin] 25 MG PO SCH (08:30)
--- NOTE | 2018-05-10 09:25 | Internal Med Progress Note ---
<Mervin Carrasco - Last Filed: 05/10/18 12:45> Hospitalist Progress Note - Encounter Date of Encounter: 05/10/18 - Exam Vitals: Temp Pulse Resp BP Pulse Ox 98.7 F 76 17 116/67 97 05/10/18 11:27 05/10/18 11:27 05/10/18 11:27 05/10/18 11:27 05/10/18 11:27 - Assessment and Plan (1) Right upper lobe pneumonia Current Visit: Yes Status: Acute (2) Breast cancer, left breast Current Visit: No Status: Resolved (3) Elevated troponin Current Visit: Yes Status: Acute (4) Sepsis Current Visit: Yes Status: Resolved (5) UTI (urinary tract infection) Current Visit: Yes Status: Resolved (6) Hypertension Current Visit: Yes Status: Chronic (7) Hyperlipidemia Current Visit: Yes Status: Chronic (8) Altered mental status Current Visit: Yes Status: Acute (9) Hypokalemia Current Visit: Yes Status: Acute (10) DVT prophylaxis Current Visit: Yes Status: Acute - Time Spent with Patient Total time spent is greater than 50% in coordination of care (as documented) at patient's floor/unit and/or counseling patient: Internal Medicine: Result - Labs CBC & Chem 7: 05/10/18 09:00 05/10/18 09:00 Labs: Short CBC 05/09/18 05/10/18 Range/Units 14:20 09:00 WBC 14.5 H 14.0 H (4.3-11.1) K/mcL Hgb 12.5 12.0 (11.5-15.4) g/dL Hct 39.4 37.4 (35.3-44.9) % Plt Count 216 230 (140-400) K/mcL Neutrophils # 12.2 H 10.4 H (1.6-8.9) K/mcL BMP 05/09/18 05/10/18 14:20 09:00 Sodium 138 136 Potassium 3.4 L 3.6 Chloride 105 102 Carbon Dioxide 28 28 BUN 17 13 Creatinine 0.83 0.75 Glucose 150 H 109 H Calcium 9.3 9.0 - ABG Interpretation ABG results: PT/INR, D-dimer PT 15.3 Seconds (9.4-12.1) H 05/06/18 18:40 - Impressions Impressions Chest CT 05/09/18 13:56 IMPRESSION: 1. Very dense consolidation right upper lobe without necrosis or liquefaction evident to suggest pulmonary abscess. An underlying pulmonary mass cannot be excluded. This presumably reflecting pneumonia. 2. Bilateral pleural effusion with bibasilar relaxation atelectasis, right greater than left. 3. Shotty lymph nodes in the mediastinum not meeting CT size criteria for adenopathy are very likely reactive. 4. Calcific atherosclerosis aorta and coronary arteries. D/ / Rex Slaughter / Rex Slaughter Interpreting Provider: Rex Slaughter Consult Discharge Plan - Plan Referrals: Wayne Schneider MD [Primary Care Provider] - - Attending Attestation I performed an independent interview and examine this patient. I agree with the findings, assessment, and plan of Dr. Gomez, internal medicine resident. Has a fairly dense right upper lobe pneumonia. She has been slow to respond to antibiotics but is improving. Her white blood cell count is trending down. We are employing aggressive bronco pulmonary toilet. She is starting to expectorate copious amounts of yellow sputum. We will continue to encourage this. She continues on broad-spectrum antibiotics for now but hopefully de- escalate soon. Exam: Gen.: Ill-appearing, awake alert and oriented 3, mild dyspnea with conversation Skin is warm and dry Neck is supple Lungs - crackles bilaterally at the bases Heart regular rate and rhythm Abdomen is soft nontender Extremities show trace edema Neurological nonfocal <Phani Gomez - Last Filed: 05/10/18 13:08> Hospitalist Progress Note - Encounter Date of Encounter: 05/10/18 Time of Encounter: 09:24 - Subjective Interval History: Patient was seen and examined at bedside this morning. She states that she still is coughing with increased yellow sputum production. Denies any wheezing or chest pain. Denies N/V/D, fever, and chills. No further complaints at this time. - Exam Vitals: Temp Pulse Resp BP Pulse Ox 97.9 F 83 17 137/73 92 05/10/18 07:28 05/10/18 07:28 05/10/18 07:05/10/18 07:05/10/18 04:30 Exam: General: Well nourished, well developed Head: Atraumatic, normocephalic Heart: RRR, no murmurs rubs or gallops Lungs: Bibasilar crackles present Abdomen: Soft, nontender Neuro: No focal deficits Extremities: Pulses 2/4 throughout. No edema Skin: Dry and intact. No lesions or bruising noted - Assessment and Plan (1) Right upper lobe pneumonia Current Visit: Yes Status: Acute Assessment and Plan: RUL consolidation found on CXR at admission - Patient reports that she is still experiencing SOB with pleuritic chest pain - Repeat CXR showed worsening RUL consolidation w/ associated volume loss CT chest demonstrated: - Very dense consolidation RUL w/o necrosis/liquefaction evident to suggest pulmonary abscess - Bilateral pleural effusion with bibasilar relaxation atelectasis, R>L Plan: - Continue Mucinex 600mg PO BID PRN and N-Acetylcysteine (Mucomist) - Sputum gram stain/CX pending - Continue Duonebs Q4H PRN - ABX Day #5: Levaquin IV Q48H --> Vanc/zosyn added to broaden coverage - MRSA screen (2) Lung nodule Current Visit: Yes Status: Acute Assessment and Plan: - NARCISO nodular opacity seen on imaging - Radiology recommends CT with contrast for further evaluation - Will tell patient about left upper lobe opacity seen on CXR and recommend following up with a ticket machine operator as outpatient (3) Hypokalemia Current Visit: Yes Status: Acute Assessment and Plan: - Continue to replace as necessary (4) Hypertension Current Visit: Yes Status: Chronic Assessment and Plan: - Propranolol (5) Hyperlipidemia Current Visit: Yes Status: Chronic Assessment and Plan: - Atorvastatin 20 mg PO HS (6) DVT prophylaxis Current Visit: Yes Status: Acute Assessment and Plan: - 5000U SQ Heparin Q8H - Time Spent with Patient Total time spent is greater than 50% in coordination of care (as documented) at patient's floor/unit and/or counseling patient: Internal Medicine: Result - Labs CBC & Chem 7: 05/10/18 09:00 05/10/18 09:00 Labs: Short CBC 05/09/18 Range/Units 14:20 WBC 14.5 H (4.3-11.1) K/mcL Hgb 12.5 (11.5-15.4) g/dL Hct 39.4 (35.3-44.9) % Plt Count 216 (140-400) K/mcL Neutrophils # 12.2 H (1.6-8.9) K/mcL BMP 05/09/18 14:20 Sodium 138 Potassium 3.4 L Chloride 105 Carbon Dioxide 28 BUN 17 Creatinine 0.83 Glucose 150 H Calcium 9.3 - ABG Interpretation ABG results: PT/INR, D-dimer PT 15.3 Seconds (9.4-12.1) H 05/06/18 18:40 - Impressions Impressions Chest X-Ray 05/09/18 08:17 IMPRESSION: 1. Worsening right upper lobe consolidation with right paratracheal stripe thickening concerning for adenopathy. 2. Indeterminate nodular opacity left upper lobe. Recommend dedicated CT imaging with IV contrast. D/ / 05/09/2018 09:33:36 Joaquín Higgins MD / [facility] Interpreting Provider: Joaquín Higgins MD Chest CT 05/09/18 13:56 IMPRESSION: 1. Very dense consolidation right upper lobe without necrosis or liquefaction evident to suggest pulmonary abscess. An underlying pulmonary mass cannot be excluded. This presumably reflecting pneumonia. 2. Bilateral pleural effusion with bibasilar relaxation atelectasis, right greater than left. 3. Shotty lymph nodes in the mediastinum not meeting CT size criteria for adenopathy are very likely reactive. 4. Calcific atherosclerosis aorta and coronary arteries. D/ / Rex Slaughter / Rex Slaughter Interpreting Provider: Rex Slaughter <Mervin Carrasco - Last Filed: 05/10/18 12:45> (1) Right upper lobe pneumonia Qualifiers: Pneumonia type: due to unspecified organism Qualified Code(s): J18.1 - Lobar pneumonia, unspecified organism (2) Breast cancer, left breast Qualifiers: Breast location: unspecified site of breast Estrogen receptor status: unspecified Patient sex: female Qualified Code(s): C50.912 - Malignant neoplasm of unspecified site of left female breast (4) Sepsis Qualifiers: Sepsis type: sepsis due to unspecified organism Qualified Code(s): A41.9 - Sepsis, unspecified organism (5) UTI (urinary tract infection) Qualifiers: Urinary tract infection type: acute cystitis Hematuria presence: with hematuria Qualified Code(s): N30.01 - Acute cystitis with hematuria (6) Hypertension Qualifiers: Hypertension type: essential hypertension Qualified Code(s): I10 - Essential (primary) hypertension (7) Hyperlipidemia Qualifiers: Hyperlipidemia type: unspecified Qualified Code(s): E78.5 - Hyperlipidemia, unspecified (8) Altered mental status Qualifiers: Altered mental status type: disorientation Qualified Code(s): R41.0 - Disorientation, unspecified <Phani Gomez - Last Filed: 05/10/18 13:08> (1) Right upper lobe pneumonia Qualifiers: Pneumonia type: due to unspecified organism Qualified Code(s): J18.1 - Lobar pneumonia, unspecified organism (4) Hypertension Qualifiers: Hypertension type: essential hypertension Qualified Code(s): I10 - Essential (primary) hypertension (5) Hyperlipidemia Qualifiers: Hyperlipidemia type: unspecified Qualified Code(s): E78.5 - Hyperlipidemia, unspecified
[2018-05-10 09:49] LABS: Basophils # 0.1 K/mcL (0.0-0.2); Basophils % 0.7 %; Eosinophils # 0.2 K/mcL (0.0-0.6); Eosinophils % 1.6 %; Hematocrit 37.4 % (35.3-44.9); Immature Granulocytes % 2.1 % (0-4); Lymphocytes # 1.6 K/mcL (0.6-4.6); Lymphocytes % 11.7 %; Mean Corpuscular HGB Conc 32.1 g/dL (31.6-35.5); Mean Corpuscular Hemoglobin 27.5 pg (28.0-33.3); Mean Corpuscular Volume 85.6 fL (83.0-100.0); Monocytes # 1.3 K/mcL (0.0-1.3); Monocytes % 9.3 %; Neutrophils # 10.4 K/mcL (1.6-8.9); Platelet Count 230 K/mcL (140-400); Red Blood Count 4.37 M/mcL (3.82-4.97); Red Cell Distribution Width 15.1 % (11.5-14.5); Segmented Neutrophils % 74.6 %
[2018-05-10 10:08] LABS: BUN/Creatinine Ratio 17 (6-26); Blood Urea Nitrogen 13 mg/dL (8-23); Carbon Dioxide 28 mEq/L (23-29); Chloride 102 mEq/L (98-107); Glucose 109 mg/dL (70-105); Osmolality,Calculated 283 (280-300); Potassium 3.6 mEq/L (3.5-5.1); Sodium 136 mEq/L (136-145); eGFR For Non-African Americans > 60 (> 60)
[2018-05-10] MEDS: Piperacillin/Tazobactam 3.375 GM in 0.9 % Sodium Chloride Mini Bag 100 ML IVPB SCH ×2 (12:07→17:57)
[2018-05-10 23:53] LABS: ABG Base Excess 0 mEq/L (-2 to 3); ABG HCO3 30 mEq/L (21-27); ABG Oxygen Saturation 93 % (95-98); ABG PCO2 68 mmHg (35-45); ABG PH 7.25 pH Units (7.32-7.45); ABG PO2 80 mmHg (85-104); ABG TCO2 32 mEq/L (20-26)
[2018-05-11] MEDS ORDERED: 0.9 % Sodium Chloride 1,000 ML ONE (00:10)
[2018-05-11] MEDS ORDERED: 0.9 % Sodium Chloride 500 ML IVC ONE (00:17)
--- NOTE | 2018-05-11 00:44 | Event Note ---
Date of Encounter: 05/11/18 Time of Encounter: 23:14 Alerted by pts. nurse GLORY Reyes that the pt. was hypertensive w/BP of 215/175 w/HR of 102, RR of 32 on 13L of O2. Pt. had just received a breathing tx. SpO2 was 85 on 2L prior to tx and pt. had been coughing and became anxious. Went to see pt. who was laying in bed and SOB. SBP was now 235. 10 mg IVP hydralazine Q6HR PRN ordered w/parameters d/t hypertension. Pt. admitted w/right lobe PNA. Stat 1V Portable CXR ordered. Stat ABG ordered w/BiPAP and RT consult. Also ordered flutter valve for subsequent breathing txs d/t pt. having ineffective cough. Lactic acid ordered. Pts. BP began to decrease. Nurse stated that pt. had similar situation last night and became hypotensive following Labetalol administration. Pt. also became red-faced during symptoms which had happened the previous night as well. Asked Dr. Degroot to come see the patient w/ recommendation to order 25 mg IVP Benadryl ONCE given which seemed to reduce the facial redness. Pt. placed on BiPAP w/SpO2 at mid 90s. Dr. Degroot also recommended IV fluid bolus when pts. BP was 107/52. Order to check BP Q5MIN. BP 121/68 10 minutes into bolus. Patient to be monitored closely overnight for signs of hypoxia, hypotension, and sepsis criteria.
[2018-05-11 01:12] LABS: ABG Base Excess 2 mEq/L (-2 to 3); ABG HCO3 27 mEq/L (21-27); ABG Oxygen Saturation 96 % (95-98); ABG PCO2 41 mmHg (35-45); ABG PH 7.42 pH Units (7.32-7.45); ABG PO2 80 mmHg (85-104); ABG TCO2 28 mEq/L (20-26); Blood Gas PEEP 7 cm H2O
[2018-05-11] MEDS: Piperacillin/Tazobactam 3.375 GM in 0.9 % Sodium Chloride Mini Bag 100 ML IVPB SCH ×2 (02:38→10:10)
[2018-05-11] MEDS: Acetylcysteine 10% 2 ML INHSOL IH SCH ×4 (04:27→22:22)
[2018-05-11] MEDS: Ipratropium/Albuterol Neb 3 ML IH SCH ×4 (04:27→22:22)
[2018-05-11] MEDS: *HR* Heparin 5,000 UNIT/ML VIAL SQ SCH ×3 (05:10→21:02)
[2018-05-11] MEDS ORDERED: Acetaminophen 325 MG TABLET PO PRN (05:50)
--- NOTE | 2018-05-11 08:06 | Internal Med Progress Note ---
<Phani Gomez - Last Filed: 05/11/18 12:17> Hospitalist Progress Note - Encounter Date of Encounter: 05/11/18 Time of Encounter: 10:15 - Subjective Interval History: Patient was seen and examined at bedside this morning. She is on BiPAP; states that it is helping with her symptoms. Denies any wheezing or chest pain. Denies N/V/D, fever, and chills. No further complaints at this time. - Exam Vitals: Temp Pulse Resp BP Pulse Ox 100.6 F H 75 17 108/57 98 05/11/18 07:22 05/11/18 07:22 05/11/18 07:22 05/11/18 07:22 05/11/18 07:22 Exam: General: Well nourished, well developed Head: Atraumatic, normocephalic Heart: RRR, no murmurs rubs or gallops Lungs: Currently on BiPAP Abdomen: Soft, nontender Neuro: No focal deficits Extremities: Pulses 2/4 throughout. No edema Skin: Dry and intact. No lesions or bruising noted - Assessment and Plan (1) Right upper lobe pneumonia Current Visit: Yes Status: Acute Assessment and Plan: RUL consolidation found on CXR at admission - Patient reports that she is still experiencing SOB with pleuritic chest pain - Repeat CXR showed worsening RUL consolidation w/ associated volume loss CT chest demonstrated: - Very dense consolidation RUL w/o necrosis/liquefaction evident to suggest pulmonary abscess - Bilateral pleural effusion with bibasilar relaxation atelectasis, R>L Plan: - Continue Mucinex 600mg PO BID PRN and N-Acetylcysteine (Mucomist) - Sputum gram stain/CX pending - Continue Duonebs Q4H PRN - ABX Day #6: Levaquin IV Q48H --> Vanc/zosyn added to broaden coverage - MRSA screen (2) Lung nodule Current Visit: Yes Status: Acute Assessment and Plan: - NARCISO nodular opacity seen on imaging - Radiology recommends CT with contrast for further evaluation - Will tell patient about left upper lobe opacity seen on CXR and recommend following up with a lobster catcher as outpatient (3) Hypokalemia Current Visit: Yes Status: Acute Assessment and Plan: - Continue to replace as necessary (4) Hypertension Current Visit: Yes Status: Chronic Assessment and Plan: - Propranolol (5) Hyperlipidemia Current Visit: Yes Status: Chronic Assessment and Plan: - Atorvastatin 20 mg PO HS (6) DVT prophylaxis Current Visit: Yes Status: Acute Assessment and Plan: - 5000U SQ Heparin Q8H DVT Prophylaxis: 5000U SQ Heparin Q8H - Time Spent with Patient Total time spent is greater than 50% in coordination of care (as documented) at patient's floor/unit and/or counseling patient: less than 15 minutes Internal Medicine: Result - Labs CBC & Chem 7: 05/11/18 05:30 05/11/18 05:30 Labs: Short CBC 05/10/18 Range/Units 09:00 WBC 14.0 H (4.3-11.1) K/mcL Hgb 12.0 (11.5-15.4) g/dL Hct 37.4 (35.3-44.9) % Plt Count 230 (140-400) K/mcL Neutrophils # 10.4 H (1.6-8.9) K/mcL BMP 05/10/18 09:00 Sodium 136 Potassium 3.6 Chloride 102 Carbon Dioxide 28 BUN 13 Creatinine 0.75 Glucose 109 H Calcium 9.0 - ABG Interpretation ABG results: ABG ABG pH 7.42 pH Units (7.32-7.45) D 05/11/18 01:05 ABG pCO2 41 mmHg (35-45) D 05/11/18 01:05 ABG pO2 80 mmHg (85-104) L 05/11/18 01:05 ABG O2 Saturation 96 % (95-98) 05/11/18 01:05 PT/INR, D-dimer PT 15.3 Seconds (9.4-12.1) H 05/06/18 18:40 - Impressions Impressions Chest X-Ray 05/10/18 23:31 IMPRESSION: Pulmonary edema with progressive consolidation of the right upper lobe. D/ / Juan Parker MD / Juan Parker MD Interpreting Provider: Juan Parker MD Consult Discharge Plan - Plan Referrals: Wayne Schneider MD [Primary Care Provider] - <Mervin Carrasco - Last Filed: 05/11/18 13:48> Hospitalist Progress Note - Encounter Date of Encounter: 05/11/18 - Exam Vitals: Temp Pulse Resp BP Pulse Ox 98.8 F 79 17 115/59 95 05/11/18 11:32 05/11/18 11:32 05/11/18 11:32 05/11/18 11:32 05/11/18 11:32 - Assessment and Plan (1) Right upper lobe pneumonia Current Visit: Yes Status: Acute (2) Breast cancer, left breast Current Visit: No Status: Resolved (3) Elevated troponin Current Visit: Yes Status: Acute (4) Sepsis Current Visit: Yes Status: Resolved (5) UTI (urinary tract infection) Current Visit: Yes Status: Resolved (6) Hypertension Current Visit: Yes Status: Chronic (7) Hyperlipidemia Current Visit: Yes Status: Chronic (8) Altered mental status Current Visit: Yes Status: Acute (9) Hypokalemia Current Visit: Yes Status: Acute (10) DVT prophylaxis Current Visit: Yes Status: Acute - Time Spent with Patient Total time spent is greater than 50% in coordination of care (as documented) at patient's floor/unit and/or counseling patient: Internal Medicine: Result - Labs CBC & Chem 7: 05/11/18 05:30 05/11/18 05:30 Labs: Short CBC 05/11/18 Range/Units 05:30 WBC 16.2 H (4.3-11.1) K/mcL Hgb 11.4 L (11.5-15.4) g/dL Hct 35.6 (35.3-44.9) % Plt Count 249 (140-400) K/mcL Neutrophils # 12.5 H (1.6-8.9) K/mcL BMP 05/11/18 05:30 Sodium 138 Potassium 4.0 Chloride 106 Carbon Dioxide 28 BUN 14 Creatinine 0.76 Glucose 112 H Calcium 8.7 - ABG Interpretation ABG results: ABG ABG pH 7.42 pH Units (7.32-7.45) D 05/11/18 01:05 ABG pCO2 41 mmHg (35-45) D 05/11/18 01:05 ABG pO2 80 mmHg (85-104) L 05/11/18 01:05 ABG O2 Saturation 96 % (95-98) 05/11/18 01:05 PT/INR, D-dimer PT 15.3 Seconds (9.4-12.1) H 05/06/18 18:40 - Impressions Impressions Chest X-Ray 05/10/18 23:31 IMPRESSION: Pulmonary edema with progressive consolidation of the right upper lobe. D/ / Juan Parker MD / Juan Parker MD Interpreting Provider: Juan Parker MD - Attending Attestation I performed an independent interview and examine this patient. I agree with the findings, assessment, and plan of Dr. Gomez, internal medicine resident. Pt has a fairly dense right upper lobe pneumonia. She has been slow to respond to antibiotics but is improving. Her white blood cell count is trending down. We are employing aggressive bronco pulmonary toilet. She is continuing to expectorate copious amounts of yellow sputum. We will continue to encourage this. She continues on broad-spectrum antibiotics for now but hopefully de-escalate soon. Exam: Gen.: , awake alert and oriented 3, mild dyspnea with conversation -much improved appearance Skin is warm and dry Neck is supple Lungs - crackles bilaterally at the bases, occasional expiratory wheeze at the right upper lung field Heart regular rate and rhythm Abdomen is soft nontender Extremities show trace edema Neurological nonfocal <Phani Gomez - Last Filed: 05/11/18 12:17> (1) Right upper lobe pneumonia Qualifiers: Pneumonia type: due to unspecified organism Qualified Code(s): J18.1 - Lobar pneumonia, unspecified organism (4) Hypertension Qualifiers: Hypertension type: essential hypertension Qualified Code(s): I10 - Essential (primary) hypertension (5) Hyperlipidemia Qualifiers: Hyperlipidemia type: unspecified Qualified Code(s): E78.5 - Hyperlipidemia, unspecified <CarrascoMervin - Last Filed: 05/11/18 13:48> (1) Right upper lobe pneumonia Qualifiers: Pneumonia type: due to unspecified organism Qualified Code(s): J18.1 - Lobar pneumonia, unspecified organism (2) Breast cancer, left breast Qualifiers: Breast location: unspecified site of breast Estrogen receptor status: unspecified Patient sex: female Qualified Code(s): C50.912 - Malignant neoplasm of unspecified site of left female breast (4) Sepsis Qualifiers: Sepsis type: sepsis due to unspecified organism Qualified Code(s): A41.9 - Sepsis, unspecified organism (5) UTI (urinary tract infection) Qualifiers: Urinary tract infection type: acute cystitis Hematuria presence: with hematuria Qualified Code(s): N30.01 - Acute cystitis with hematuria (6) Hypertension Qualifiers: Hypertension type: essential hypertension Qualified Code(s): I10 - Essential (primary) hypertension (7) Hyperlipidemia Qualifiers: Hyperlipidemia type: unspecified Qualified Code(s): E78.5 - Hyperlipidemia, unspecified (8) Altered mental status Qualifiers: Altered mental status type: disorientation Qualified Code(s): R41.0 - Disorientation, unspecified
[2018-05-11 08:28] LABS: Basophils # 0.1 K/mcL (0.0-0.2); Basophils % 0.8 %; Eosinophils # 0.1 K/mcL (0.0-0.6); Eosinophils % 0.4 %; Hematocrit 35.6 % (35.3-44.9); Hemoglobin 11.4 g/dL (11.5-15.4); Immature Granulocytes % 3.8 % (0-4); Immature Platelets 9.3 % (1.1-6.1); Lymphocytes # 1.5 K/mcL (0.6-4.6); Lymphocytes % 9.3 %; Mean Corpuscular Hemoglobin 27.3 pg (28.0-33.3); Mean Corpuscular Volume 85.4 fL (83.0-100.0); Mean Platelet Volume 12.3 fL (9.4-12.4); Monocytes # 1.4 K/mcL (0.0-1.3); Monocytes % 8.3 %; Neutrophils # 12.5 K/mcL (1.6-8.9); Platelet Count 249 K/mcL (140-400); Red Blood Count 4.17 M/mcL (3.82-4.97); Red Cell Distribution Width 15.2 % (11.5-14.5); Segmented Neutrophils % 77.4 %
[2018-05-11 08:36] LABS: BUN/Creatinine Ratio 18 (6-26); Blood Urea Nitrogen 14 mg/dL (8-23); Calcium 8.7 mg/dL (8.6-10.3); Carbon Dioxide 28 mEq/L (23-29); Chloride 106 mEq/L (98-107); Glucose 112 mg/dL (70-105); Osmolality,Calculated 287 (280-300); Sodium 138 mEq/L (136-145); eGFR For Non-African Americans > 60 (> 60)
--- NOTE | 2018-05-11 09:07 | Electrocardiograph Report ---
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
--- NOTE | 2018-05-11 09:17 | Electrocardiograph Report ---
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
--- NOTE | 2018-05-11 09:22 | Electrocardiograph Report ---
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
[2018-05-11] MEDS: Exemestane [Aromasin] 25 MG PO SCH (09:45)
[2018-05-11] MEDS: Aspirin Enteric Coated 81 MG Tablet PO SCH (09:46)
[2018-05-11] MEDS: Niacin (24 HR) 500 MG TAB.ER.24H PO SCH ×2 (09:46→21:02)
[2018-05-11] MEDS: Propranolol LA (24 HR) 60 MG CAP.SA.24H PO SCH ×2 (09:46→21:02)
[2018-05-11] MEDS: Methylphenidate HCl 10 MG TABLET PO SCH (09:46)
[2018-05-11] MEDS: Levofloxacin 750 MG/150 ML 750 MG/150 ML BAG IVPB SCH (09:46)
[2018-05-11] MEDS: Magnesium Oxide 400 MG TABLET PO SCH (09:46)
[2018-05-11] MEDS ORDERED: Miconazole 2% cream 118 GM TUBE TP SCH (21:00)
[2018-05-11] MEDS ORDERED: Miconazole 2% ointment 114 GM TUBE TP SCH (22:30)
[2018-05-12] MEDS: Piperacillin/Tazobactam 3.375 GM in 0.9 % Sodium Chloride Mini Bag 100 ML IVPB SCH ×4 (03:02→17:27)
[2018-05-12] MEDS: Miconazole 2% ointment 114 GM TUBE TP SCH ×4 (04:24→21:44)
[2018-05-12] MEDS: Acetylcysteine 10% 2 ML INHSOL IH SCH ×4 (04:39→21:28)
[2018-05-12] MEDS: Ipratropium/Albuterol Neb 3 ML IH SCH ×4 (04:39→21:28)
[2018-05-12] MEDS: *HR* Heparin 5,000 UNIT/ML VIAL SQ SCH ×3 (06:40→21:48)
[2018-05-12] MEDS ORDERED: Aminoglycoside Consult 1 EACH MC ONE (07:28)
[2018-05-12] MEDS: Propranolol LA (24 HR) 60 MG CAP.SA.24H PO SCH ×2 (09:53→21:45)
[2018-05-12] MEDS: Magnesium Oxide 400 MG TABLET PO SCH (09:53)
[2018-05-12] MEDS: Niacin (24 HR) 500 MG TAB.ER.24H PO SCH ×2 (09:54→21:45)
[2018-05-12] MEDS: Aspirin Enteric Coated 81 MG Tablet PO SCH (09:54)
[2018-05-12] MEDS: Methylphenidate HCl 10 MG TABLET PO SCH (09:55)
[2018-05-12] MEDS: Levofloxacin 750 MG/150 ML 750 MG/150 ML BAG IVPB SCH (09:57)
[2018-05-12] MEDS: Exemestane [Aromasin] 25 MG PO SCH (13:36)
[2018-05-12] MEDS ORDERED: Levofloxacin 750 MG/150 ML 750 MG/150 ML BAG IVPB SCH (14:00)
--- NOTE | 2018-05-12 14:49 | Internal Med Progress Note ---
<Mervin Carrasco - Last Filed: 05/12/18 17:00> Hospitalist Progress Note - Encounter Date of Encounter: 05/12/18 - Exam Vitals: Temp Pulse Resp BP Pulse Ox 98.0 F 82 23 118/65 100 05/12/18 11:20 05/12/18 11:20 05/12/18 15:50 05/12/18 11:20 05/12/18 15:50 - Assessment and Plan (1) Right upper lobe pneumonia Current Visit: Yes Status: Acute (2) Breast cancer, left breast Current Visit: No Status: Resolved (3) Elevated troponin Current Visit: Yes Status: Acute (4) Sepsis Current Visit: Yes Status: Resolved (5) UTI (urinary tract infection) Current Visit: Yes Status: Resolved (6) Hypertension Current Visit: Yes Status: Chronic (7) Hyperlipidemia Current Visit: Yes Status: Chronic (8) Altered mental status Current Visit: Yes Status: Acute (9) Hypokalemia Current Visit: Yes Status: Acute (10) DVT prophylaxis Current Visit: Yes Status: Acute - Time Spent with Patient Total time spent is greater than 50% in coordination of care (as documented) at patient's floor/unit and/or counseling patient: Internal Medicine: Result - Labs CBC & Chem 7: 05/11/18 05:30 05/11/18 05:30 - ABG Interpretation ABG results: ABG ABG pH 7.42 pH Units (7.32-7.45) D 05/11/18 01:05 ABG pCO2 41 mmHg (35-45) D 05/11/18 01:05 ABG pO2 80 mmHg (85-104) L 05/11/18 01:05 ABG O2 Saturation 96 % (95-98) 05/11/18 01:05 PT/INR, D-dimer PT 15.3 Seconds (9.4-12.1) H 05/06/18 18:40 - Impressions Impressions Chest X-Ray 05/09/18 08:17 IMPRESSION: 1. Worsening right upper lobe consolidation with right paratracheal stripe thickening concerning for adenopathy. 2. Indeterminate nodular opacity left upper lobe. Recommend dedicated CT imaging with IV contrast. D/ / 05/09/2018 09:33:36 Joaquín Higgins MD / azam Interpreting Provider: Joaquín Higgins MD Consult Discharge Plan - Plan Referrals: Wayne Schneider MD [Primary Care Provider] - - Attending Attestation I performed an independent interview and exam of this patient. I agree with the findings, assessment, and plan of Dr. Gomez, internal medicine resident. Patient has improved, slowly but significantly better the last several days. Today de-escalate her antibiotics to Levaquin monotherapy. Continue with aggressive bronchopulmonary toilet. Pneumocephalus oxygen as needed. She may need to go home on oxygen. Hopefully discharge in 1-2 days if continues to improve. Gen NAD, AAOx3 Lung dimin bs bilat Ht rrr Abd soft +BS, NT Ext no edema <Phani Gomez - Last Filed: 05/12/18 18:33> Hospitalist Progress Note - Encounter Date of Encounter: 05/12/18 Time of Encounter: 14:40 - Subjective Interval History: Patient was seen and examined at bedside; states that she has had several episodes of diarrhea today. She reports that she is still having mild cough and shortness of breath. She denies fever, chills, nausea, vomiting, or chest pain. No further complaints. - Exam Vitals: Temp Pulse Resp BP Pulse Ox 98.0 F 82 26 118/65 97 05/12/18 11:20 05/12/18 11:20 05/12/18 11:20 05/12/18 11:20 05/12/18 11:20 Exam: General: Well nourished, well developed Head: Atraumatic, normocephalic Heart: RRR, no murmurs rubs or gallops Lungs: Currently on BiPAP Abdomen: Soft, nontender Neuro: No focal deficits Extremities: Pulses 2/4 throughout. No edema Skin: Dry and intact. No lesions or bruising noted - Assessment and Plan (1) Right upper lobe pneumonia Current Visit: Yes Status: Acute Assessment and Plan: RUL consolidation found on CXR at admission - Patient reports that she is still experiencing SOB with pleuritic chest pain - Repeat CXR showed worsening RUL consolidation w/ associated volume loss CT chest demonstrated: - Very dense consolidation RUL w/o necrosis/liquefaction evident to suggest pulmonary abscess - Bilateral pleural effusion with bibasilar relaxation atelectasis, R>L Plan: - Continue Mucinex 600mg PO BID PRN and N-Acetylcysteine (Mucomist) - Sputum gram stain/CX pending - Continue Duonebs Q4H PRN - ABX Day #7: Levaquin (2) Lung nodule Current Visit: Yes Status: Acute Assessment and Plan: - NARCISO nodular opacity seen on imaging - Radiology recommends CT with contrast for further evaluation - Will tell patient about left upper lobe opacity seen on CXR and recommend following up with a quilting supervisor as outpatient- NARCISO nodular opacity seen on imaging - Radiology recommends CT with contrast for further evaluation - Will tell patient about left upper lobe opacity seen on CXR and recommend following up with a quilting supervisor as outpatient (3) Hypokalemia Current Visit: Yes Status: Acute Assessment and Plan: - Continue to replace as necessary (4) Hypertension Current Visit: Yes Status: Chronic Assessment and Plan: - Propranolol (5) Hyperlipidemia Current Visit: Yes Status: Chronic Assessment and Plan: - Atorvastatin 20 mg PO HS (6) DVT prophylaxis Current Visit: Yes Status: Acute Assessment and Plan: - 5000U SQ Heparin Q8H DVT Prophylaxis: 5000U SQ Heparin Q8H - Time Spent with Patient Total time spent is greater than 50% in coordination of care (as documented) at patient's floor/unit and/or counseling patient: less than 15 minutes Internal Medicine: Result - Labs CBC & Chem 7: 05/11/18 05:30 05/11/18 05:30 - ABG Interpretation ABG results: ABG ABG pH 7.42 pH Units (7.32-7.45) D 05/11/18 01:05 ABG pCO2 41 mmHg (35-45) D 05/11/18 01:05 ABG pO2 80 mmHg (85-104) L 05/11/18 01:05 ABG O2 Saturation 96 % (95-98) 05/11/18 01:05 PT/INR, D-dimer PT 15.3 Seconds (9.4-12.1) H 05/06/18 18:40 - Impressions Impressions Chest X-Ray 05/09/18 08:17 IMPRESSION: 1. Worsening right upper lobe consolidation with right paratracheal stripe thickening concerning for adenopathy. 2. Indeterminate nodular opacity left upper lobe. Recommend dedicated CT imaging with IV contrast. D/ / 05/09/2018 09:33:36 Joaquín Higgins MD / azam Interpreting Provider: Joaquín Higgins MD <Mervin Carrasco - Last Filed: 05/12/18 17:00> (1) Right upper lobe pneumonia Qualifiers: Pneumonia type: due to unspecified organism Qualified Code(s): J18.1 - Lobar pneumonia, unspecified organism (2) Breast cancer, left breast Qualifiers: Breast location: unspecified site of breast Estrogen receptor status: unspecified Patient sex: female Qualified Code(s): C50.912 - Malignant neoplasm of unspecified site of left female breast (4) Sepsis Qualifiers: Sepsis type: sepsis due to unspecified organism Qualified Code(s): A41.9 - Sepsis, unspecified organism (5) UTI (urinary tract infection) Qualifiers: Urinary tract infection type: acute cystitis Hematuria presence: with hematuria Qualified Code(s): N30.01 - Acute cystitis with hematuria (6) Hypertension Qualifiers: Hypertension type: essential hypertension Qualified Code(s): I10 - Essential (primary) hypertension (7) Hyperlipidemia Qualifiers: Hyperlipidemia type: unspecified Qualified Code(s): E78.5 - Hyperlipidemia, unspecified (8) Altered mental status Qualifiers: Altered mental status type: disorientation Qualified Code(s): R41.0 - Disorientation, unspecified <Phani Gomez - Last Filed: 05/12/18 18:33> (1) Right upper lobe pneumonia Qualifiers: Pneumonia type: due to unspecified organism Qualified Code(s): J18.1 - Lobar pneumonia, unspecified organism (4) Hypertension Qualifiers: Hypertension type: essential hypertension Qualified Code(s): I10 - Essential (primary) hypertension (5) Hyperlipidemia Qualifiers: Hyperlipidemia type: unspecified Qualified Code(s): E78.5 - Hyperlipidemia, unspecified
[2018-05-12] MEDS: Lactobacillus 1 EACH CAP.SPRINK PO SCH (21:45)
[2018-05-13] MEDS: Ipratropium/Albuterol Neb 3 ML IH SCH ×4 (04:21→21:38)
[2018-05-13] MEDS: Acetylcysteine 10% 2 ML INHSOL IH SCH ×2 (04:21→08:51)
[2018-05-13] MEDS: *HR* Heparin 5,000 UNIT/ML VIAL SQ SCH ×3 (06:00→21:57)
[2018-05-13] MEDS: Miconazole 2% ointment 114 GM TUBE TP SCH ×3 (07:54→21:56)
[2018-05-13] MEDS: Propranolol LA (24 HR) 60 MG CAP.SA.24H PO SCH ×2 (08:08→21:56)
[2018-05-13] MEDS: Magnesium Oxide 400 MG TABLET PO SCH (08:09)
[2018-05-13] MEDS: Niacin (24 HR) 500 MG TAB.ER.24H PO SCH ×2 (08:09→21:57)
[2018-05-13] MEDS: Lactobacillus 1 EACH CAP.SPRINK PO SCH ×2 (08:10→21:56)
[2018-05-13] MEDS: Methylphenidate HCl 10 MG TABLET PO SCH (08:10)
[2018-05-13] MEDS: Aspirin Enteric Coated 81 MG Tablet PO SCH (08:10)
[2018-05-13] MEDS ORDERED: Levofloxacin 750 MG/150 ML 750 MG/150 ML BAG IVPB SCH (09:00)
[2018-05-13] MEDS: Exemestane [Aromasin] 25 MG PO SCH (10:03)
--- NOTE | 2018-05-13 11:28 | Internal Med Progress Note ---
Hospitalist Progress Note - Encounter Date of Encounter: 05/13/18 Time of Encounter: 11:27 - Subjective Interval History: Patient seen and examined this morning. No acute overnight events. Still feels short of breath. Continues to have diarrhea. Denies fever, chills. Has decreased appetite. On bipap prn. - Exam Vitals: Temp Pulse Resp BP Pulse Ox 97.9 F 90 17 165/87 93 05/13/18 10:59 05/13/18 10:59 05/13/18 10:59 05/13/18 10:59 05/13/18 10:59 Exam: General: Well nourished, well developed Head: Atraumatic, normocephalic Heart: RRR, no murmurs rubs or gallops Lungs: Rt upper lung field bronchial sounds with decreased air entry and rhonchi. Abdomen: Soft, nontender Neuro: No focal deficits Extremities: Pulses 2/4 throughout. No edema Skin: Dry and intact. No lesions or bruising noted - Assessment and Plan (1) Right upper lobe pneumonia Current Visit: Yes Status: Acute (2) Breast cancer, left breast Current Visit: No Status: Resolved (3) Elevated troponin Current Visit: Yes Status: Acute (4) Sepsis Current Visit: Yes Status: Resolved (5) UTI (urinary tract infection) Current Visit: Yes Status: Resolved (6) Hypertension Current Visit: Yes Status: Chronic (7) Hyperlipidemia Current Visit: Yes Status: Chronic (8) Altered mental status Current Visit: Yes Status: Acute (9) Hypokalemia Current Visit: Yes Status: Acute (10) DVT prophylaxis Current Visit: Yes Status: Acute - Summary of Assessment and Plan Summary of Assessment and Plan: Right upper lobe pneumonia - RUL consolidation found on CXR at admission. - CT chest showed dense consolidation RUL w/o necrosis/liquefaction evident to suggest pulmonary abscess. Underlying mass could not be ruled out. Bilateral pleural effusion with bibasilar relaxation atelectasis, R>L - Continue Mucinex PRN and N-Acetylcysteine. Continue Duonebs Q4H PRN - Sputum and blood culture NGTD. Continue abx - Levaquin(desclated from Vancomycin/Zosyn/Levaquin). today is day 8. - Consulted Pulm given still short of breath nearing completion of treatment of Pneumonia. Elevated troponin - Suspect secondary to demand ischemia - Cardio recommended medical management as per discussion with patient. - Continue asa, statin, and BB. - TTE shows preserved LVEF with normal wall motion, mild RV hypokinesis. Hypokalemia - Resolved Hypertension - c/w Home hydralazine and Propranolol Hyperlipidemia - c/w Atorvastatin 20 mg PO HS DVT prophylaxis - 5000U SQ Heparin Q8H - Time Spent with Patient Total time spent is greater than 50% in coordination of care (as documented) at patient's floor/unit and/or counseling patient: Internal Medicine: Result - Labs CBC & Chem 7: 05/11/18 05:30 05/11/18 05:30 Labs: Urine 05/09/18 Range/Units 00:50 Urine Color Dark Yellow (Yellow) Urine Clarity Clear (Clear) Urine pH 6.0 (5.0-8.0) pH Units Ur Specific [place] 1.026 H (1.010-1.025) Urine Protein 30 H (Neg-Trace) mg/dL Urine Glucose (UA) Normal (Normal) mg/dL - ABG Interpretation ABG results: ABG ABG pH 7.42 pH Units (7.32-7.45) D 05/11/18 01:05 ABG pCO2 41 mmHg (35-45) D 05/11/18 01:05 ABG pO2 80 mmHg (85-104) L 05/11/18 01:05 ABG O2 Saturation 96 % (95-98) 05/11/18 01:05 PT/INR, D-dimer PT 15.3 Seconds (9.4-12.1) H 05/06/18 18:40 Consult Discharge Plan - Plan Referrals: Wayne Schneider MD [Primary Care Provider] - 05/16/18 11:15 am (1) Right upper lobe pneumonia Qualifiers: Pneumonia type: due to unspecified organism Qualified Code(s): J18.1 - Lobar pneumonia, unspecified organism (2) Breast cancer, left breast Qualifiers: Breast location: unspecified site of breast Estrogen receptor status: unspecified Patient sex: female Qualified Code(s): C50.912 - Malignant neoplasm of unspecified site of left female breast (4) Sepsis Qualifiers: Sepsis type: sepsis due to unspecified organism Qualified Code(s): A41.9 - Sepsis, unspecified organism (5) UTI (urinary tract infection) Qualifiers: Urinary tract infection type: acute cystitis Hematuria presence: with hematuria Qualified Code(s): N30.01 - Acute cystitis with hematuria (6) Hypertension Qualifiers: Hypertension type: essential hypertension Qualified Code(s): I10 - Essential (primary) hypertension (7) Hyperlipidemia Qualifiers: Hyperlipidemia type: unspecified Qualified Code(s): E78.5 - Hyperlipidemia, unspecified (8) Altered mental status Qualifiers: Altered mental status type: disorientation Qualified Code(s): R41.0 - Disorientation, unspecified
--- NOTE | 2018-05-13 12:18 | Pulmonology Consult Note ---
Date of Encounter: 05/13/18 Time of Encounter: 12:18 Assessment and Plan (1) Right upper lobe pneumonia Current Visit: Yes Status: Acute I reviewed the CT images and the chest x-ray there appeared to been some worsening at least radiographically or clinically I think the patient clearly is making progress this will be a slow recovery and my opinion and I would anticipate that the patient would take several weeks to recover fully. Would plan on continuing antibiotics for at least 10 days I think she is received in total 8 days at this point and she should continue at least 2 more days possibility of extension to 14 based upon clinical course Final determination antimicrobial therapy of defer to the hospitalist service but from my impressions Mayte has had significant side effects including diarrhea cannot exclude the possibility of drug rash although I do not think that this is the case based upon the findings on her back given is localized to one area. I do not think she would benefit from vancomycin agree with this discontinuation. She can be transitioned to a third of fourth generalization cephalosporin to complete therapy or transitioned to oral agent such as Augmentin to complete treatment She will need a CT scan in 4-6 weeks to document full resolution of this Qualifiers: Pneumonia type: due to unspecified organism Qualified Code(s): J18.1 - Lobar pneumonia, unspecified organism (2) Acute respiratory failure with hypoxia Current Visit: Yes Status: Acute Continue supplemental oxygen to keep oxygen saturation greater than 9089% around 92% BIPAP as needed for work of breathing but there is no indication for this to be used on a continuous basis to treat the respiratory failure at this point Incentive spirometry out of bed to chair and ambulation as tolerated with supervision and with oxygen and I will be helpful in medicating the effects of the atelectasis which can lead to VQ mismatching and worsening hypoxemia It is very possible patient will need to oxygen for at least a placebo future and deftly would need a walking pulse oximetry prior to discharge (3) COPD with exacerbation Current Visit: Yes Status: Acute I suspect underlying undiagnosed COPD with wheezing on examination today Command IV Solu-Medrol 40 mg every 8 today transition to oral glucocorticoids tomorrow 40 mg daily to Complete two-week taper Symbicort 160/4.52 puffs twice daily with plan to discharge patient with this medication Continue nebulized breathing treatments (duo nebs) every 6 hours with every one hour albuterol on an as-needed basis Outpatient follow-up for PFTs and further assessment of underlying airways disease (4) Diastolic dysfunction Current Visit: Yes Status: Acute Patient is evidence of diastolic dysfunction on her echocardiogram with clear evidence of volume overload with bilateral pleural effusions etc. complicated by hypertension she will need optimization of her blood pressure per primary service and I suspect she would benefit from loop diuretic in the short-term for net -0.5-1 L over the next 24-48 hours Anesthetic cardiology had been consulted previously on this admission you could consider further recommendations from their standpoint on treatment of underlying hypertension and diastolic dysfunction (5) Rash and nonspecific skin eruption Current Visit: Yes Status: Acute This looks like a folliculitis possibly related to contact from the chair drug reaction is not completely with excluded on my examination but suspected to be less likely further evaluation per primary service consider dermatology evaluation if indicated (6) Tobacco abuse Current Visit: Yes Status: Acute Tobacco cessation counseling provided for the patient there is no amount of tobacco that safe and I encouraged her to stop completely (7) Hypertension Current Visit: Yes Status: Chronic Blood pressure has been suboptimally controlled since she has been inpatient she will need titration of this I suspect this is contributing to increased pulmonary venous congestion and shortness of breath likely complicating VQ mismatching leading to worsening hypoxemia Qualifiers: Hypertension type: essential hypertension Qualified Code(s): I10 - Essential (primary) hypertension History of Present Illness Consult date: 05/13/18 Requesting physician: Justina Reynolds Reason for consult: pneumonia Chief complaint: Difficulty in Breathing. History of present illness: Pleasant 78-year-old woman with a history of long-standing hypertension tobacco abuse remote history of breast cancer greater than 5 years ago that was treated with lumpectomy and radiation who presented with increasing cough and shortness of breath is also confused on admission to the emergency department. Patient was febrile with temperature of 103, heart rate 92, white blood cell count 23 on admission. She been treated with broad-spectrum antimicrobials after CT scan was performed which is notable for a significant right upper lobe bulla opacity consistent with lobar pneumonia with possible underlying mass that could not be excluded. Hospitalization has been complicated by acute respiratory failure with hypoxia and hypercapnia requiring intermittent use of BiPAP although now she has been weaned down to nasal cannula oxygen something that she does not use at home at baseline. She also on admission had troponin elevation with concern for an STEMI further hospital course was complicated by hypertension including her hypertensive crisis at one point. Pulmonary was consulted for further evaluation of respiratory failure and pneumonia. Patient started smoking in the mid teen years and smoked about a three quarters of pack a day for most of her life she quit fully about 2 years ago and has come back to smoking intermittently. No environmental or industrial exposures exotic pets at home no sick contacts or recent travel. Today she states that she feels like she is getting better Minguido Batemane that she is breathing is still labored her chest feels tight cough is improving she denies any fever and there is been no evidence of fever on nursing report. She has developed a rash on her back which is quite itchy after sitting up in chair yesterday. She also states with the antibiotics he has had diarrhea. Past Med Surg Social Fam HX - Past Medical History Medical history: GERD, hypertension, other (hx of cardiac arrhythmia) Psychiatric history: anxiety, depression - Past Surgical History Surgical History: other (hx of ablation) - Social History Smoking Status: Current some day smoker Packs per day: 0.25 Smokeless Tobacco Status: No Alcohol use: none Drug use: marijuana - Family History Mother Living Status: Cause of : breast CA Hx Family Cardiac Disorders: Yes (Hx of SSS s/p PPM) Hx Family Cancer: Yes (breast CA) Father History Unknown: Yes Living Status: Cause of : unknown Hx Family Cardiac Disorders: No Medications and Allergies ARIPiprazole [Abilify] 2 mg PO DAILY 12/26/16 [History] Cholecalciferol (D-3) [Vitamin D] 1,000 unit PO DAILY 12/26/16 [History] Flaxseed Oil 1,000 mg PO DAILY 12/26/16 [History] LORazepam [Ativan] 2 mg PO BID 12/26/16 [History] Lansoprazole [Prevacid] 15 mg PO BIDAC 12/26/16 [History] Magnesium Oxide [Magnesium] 400 mg PO DAILY 12/26/16 [History] Niacin [Niaspan] 500 mg PO BID 12/26/16 [History] Propranolol HCl [Innopran Xl] 120 mg PO BID 12/26/16 [History] Topiramate [Topamax] 25 mg PO DAILY 12/26/16 [History] Exemestane [Aromasin] 25 mg PO DAILY #90 tablet 09/04/17 [Rx] Buspirone HCl [Buspar] 15 mg PO BID 05/06/18 [History] Methylphenidate HCl [Ritalin] 10 mg PO DAILY 05/06/18 [History] SUMAtriptan succinate [Imitrex] 50 mg PO DAILY PRN 05/06/18 [History] 3 Allergy/AdvReac Type Severity Reaction Status Date / Time No Known Allergies Allergy Verified 05/06/18 18:08 All Systems: The remainder of the systems were reviewed and are negative Physical Examination Vital Signs: Vital Signs, Last 4 Hours Temp Pulse Resp BP Pulse Ox 05/13/18 11:40 93 05/13/18 10:59 97.9 F 90 17 165/87 93 05/13/18 08:51 21 100 General appearance: no acute distress Eyes: nonicteric ENT: oropharynx moist Neck: supple Effort: normal Auscultation: bilateral: diminished breath sounds, wheezes (b/l EXP wheezing ), rales (in lung bases ) Cardiovascular: regular rate and rhythm Gastrointestinal: normoactive bowel sounds, soft, non-tender Integumentary: rash (There is a follicular-like rash disseminated over her backside without any evidence of erythema or rash on the trunk or extremities) Extremities: no cyanosis, edema (Bilateral 1+ pitting edema noted) Musculoskeletal: no deformities normal mental status, non-focal exam mood appropriate Results - Laboratory Findings CBC and BMP: 05/11/18 05:30 05/11/18 05:30 ABG ABG pH 7.42 pH Units (7.32-7.45) D 05/11/18 01:05 ABG pCO2 41 mmHg (35-45) D 05/11/18 01:05 ABG pO2 80 mmHg (85-104) L 05/11/18 01:05 ABG O2 Saturation 96 % (95-98) 05/11/18 01:05 PT/INR, D-dimer PT 15.3 Seconds (9.4-12.1) H 05/06/18 18:40 Abnormal lab findings: Abnormal lab results WBC 16.2 K/mcL (4.3-11.1) H 05/11/18 05:30 Hgb 11.4 g/dL (11.5-15.4) L 05/11/18 05:30 MCH 27.3 pg (28.0-33.3) L 05/11/18 05:30 RDW 15.2 % (11.5-14.5) H 05/11/18 05:30 Neutrophils # 12.5 K/mcL (1.6-8.9) H 05/11/18 05:30 Monocytes # 1.4 K/mcL (0.0-1.3) H 05/11/18 05:30 Immature Plt Fraction 9.3 % (1.1-6.1) H 05/11/18 05:30 PT 15.3 Seconds (9.4-12.1) H 05/06/18 18:40 ABG pO2 80 mmHg (85-104) L 05/11/18 01:05 ABG Total CO2 28 mEq/L (20-26) H 05/11/18 01:05 Glucose 112 mg/dL (70-105) H 05/11/18 05:30 POC Glucose 143 mg/dL (70-99) H 05/08/18 19:22 Magnesium 1.1 mg/dL (1.6-2.6) L 05/06/18 18:40 Total Bilirubin 2.8 mg/dL (0.3-1.0) H 05/07/18 07:57 Direct Bilirubin 1.5 mg/dL (0.0-0.2) H 05/06/18 18:40 Indirect Bilirubin 1.7 mg/dL (0.0-1.2) H 05/06/18 18:40 Troponin I 0.05 ng/mL (< 0.04) H* 05/07/18 10:56 Serum Total Protein 5.2 g/dL (6.4-8.9) L 05/07/18 07:57 Albumin 2.9 g/dL (3.5-5.7) L 05/07/18 07:57 Globulin 2.3 g/dL (2.4-3.5) L 05/07/18 07:57 Ur Specific [place] 1.026 (1.010-1.025) H 05/09/18 00:50 Urine Protein 30 mg/dL (Neg-Trace) H 05/09/18 00:50 Urine Microscopic RBC 5-15 per hpf (0-3) H 05/09/18 00:50 Urine Microscopic WBC 3-5 per hpf (0-3) H 05/09/18 00:50 Ur Squamous Epith Cells Moderate per lpf (None-Few) H 05/09/18 00:50 Ur Culture Indicated? NO. (NO) A 05/06/18 20:03 Urine Opiates Screen Positive ng/mL (Edgzyx=805) H 05/06/18 20:03 U Benzodiazepines Scrn Positive ng/mL (Qcnqbp=019) H 05/06/18 20:03 U Marijuana (THC) Screen Positive ng/mL (Cutoff = 50) H 05/06/18 20:03 - Diagnostic Findings Chest x-ray: report reviewed, image reviewed CT scan - chest: report reviewed, image reviewed - Clinical Findings Intake & Output: Intake & Output 05/12/18 05/13/18 05/13/18 23:59 07:59 15:59 Intake Total 0 / 0 1033 / 1033 Output Total 700 / 700 400 / 400 Balance 0 / 0 -700 / -700 633 / 633 Weight 76.5 kg Consult Discharge Plan - Plan Referrals: Wayne Schneider MD [Primary Care Provider] - 05/16/18 11:15 am
[2018-05-13] MEDS ORDERED: Albuterol 2.5 MG/3 ML NEBULIZER IH PRN (15:53)
[2018-05-13] MEDS: Budesonide/Formoterol 160/4.5 1 PUFF INH IH SCH ×2 (16:37→21:38)
[2018-05-13] MEDS: MethylPREDNISolone 40 MG/ML VIAL IVP SCH (16:43)
[2018-05-13] MEDS: *HR* LORazepam 1 MG TABLET PO PRN (22:04)
[2018-05-14] MEDS: MethylPREDNISolone 40 MG/ML VIAL IVP SCH ×2 (00:47→08:37)
[2018-05-14 01:09] LABS: Basophils # 0.1 K/mcL (0.0-0.2); Basophils % 0.8 %; Eosinophils % 0.1 %; Hematocrit 37.7 % (35.3-44.9); Hemoglobin 12.2 g/dL (11.5-15.4); Immature Granulocytes % 4.9 % (0-4); Lymphocytes # 1.1 K/mcL (0.6-4.6); Lymphocytes % 7.8 %; Mean Corpuscular HGB Conc 32.4 g/dL (31.6-35.5); Mean Corpuscular Hemoglobin 27.2 pg (28.0-33.3); Mean Corpuscular Volume 84.2 fL (83.0-100.0); Mean Platelet Volume 11.1 fL (9.4-12.4); Monocytes # 0.2 K/mcL (0.0-1.3); Monocytes % 1.4 %; Platelet Count 450 K/mcL (140-400); Red Blood Count 4.48 M/mcL (3.82-4.97); Red Cell Distribution Width 15.4 % (11.5-14.5)
[2018-05-14] MEDS: Ipratropium/Albuterol Neb 3 ML IH SCH ×3 (03:20→15:16)
[2018-05-14] MEDS: *HR* Heparin 5,000 UNIT/ML VIAL SQ SCH (06:18)
--- NOTE | 2018-05-14 06:42 | Pulmonology Progress Note ---
Date of Encounter: 05/14/18 Time of Encounter: 06:42 Assessment and Plan (1) Right upper lobe pneumonia Current Visit: Yes Status: Acute I reviewed her chest x-ray there is persistent right upper lobe opacity although slightly improved Clinically she continues to improve It is not surprising that there will be a radiographic lag She will need repeat CT scan in 4-6 weeks to demonstrate full resolution of this Recommend a total of 10 days of antimicrobials Patient can follow-up in outpatient pulmonary clinic in 4-6 weeks for further evaluation Qualifiers: Pneumonia type: due to unspecified organism Qualified Code(s): J18.1 - Lobar pneumonia, unspecified organism (2) Acute respiratory failure with hypoxia Current Visit: Yes Status: Acute Continue to wean supplemental oxygen to keep saturation greater than 89-92% She will need a walking pulse oximetry prior to discharge to determine amount of oxygen with exertion and with sleep (3) COPD with exacerbation Current Visit: Yes Status: Acute She has received 3 doses of IV Solu-Medrol transition to oral glucocorticoid ( prednisone 40 mg) with plan to taper over 2 weeks and possibly longer Continue Symbicort twice daily dosing Schedule bronchodilators with hourly albuterol as needed (4) Diastolic dysfunction Current Visit: Yes Status: Acute Blood pressure is still suboptimally controlled and dosed remains mildly volume overloaded recommended dose of loop diuretic today and optimization of blood pressure per primary service (5) Rash and nonspecific skin eruption Current Visit: Yes Status: Acute This is being managed by the primary service appears stable on examination today doubt drug eruption although possible (6) Tobacco abuse Current Visit: Yes Status: Acute Tobacco cessation counseling given to the patient (7) Hypertension Current Visit: Yes Status: Chronic Management per primary service Pulmonary will sign off please call with any questions Qualifiers: Hypertension type: essential hypertension Qualified Code(s): I10 - Essential (primary) hypertension Subjective Principal diagnosis: PNA, sepsis, elevated troponin Interval history: Dejah says she is feeling little bit better than yesterday. Remains afebrile overnight. Rash is stable. She was able to get out of the bed to chair for about 2 hours yesterday she states that she is willing to try that again today. She is still coughing and feels weak Objective PUL Vital signs: Last Vital Signs Temp 98.0 F 05/14/18 04:37 Pulse 84 05/14/18 04:37 Resp 19 05/14/18 04:37 BP 154/90 05/14/18 04:37 Pulse Ox 93 05/14/18 04:37 General appearance: no acute distress Eyes: nonicteric Effort: normal Auscultation: bilateral: wheezes (Faint expiratory wheezes a little much improved from previous day's examination) Cardiovascular: regular rate and rhythm Gastrointestinal: normoactive bowel sounds Integumentary: rash Extremities: edema normal mental status, non-focal exam mood appropriate Results - Laboratory Findings CBC and BMP: 05/14/18 00:50 05/11/18 05:30 ABG ABG pH 7.42 pH Units (7.32-7.45) D 05/11/18 01:05 ABG pCO2 41 mmHg (35-45) D 05/11/18 01:05 ABG pO2 80 mmHg (85-104) L 05/11/18 01:05 ABG O2 Saturation 96 % (95-98) 05/11/18 01:05 PT/INR, D-dimer PT 15.3 Seconds (9.4-12.1) H 05/06/18 18:40 Abnormal lab findings: Abnormal lab results WBC 14.2 K/mcL (4.3-11.1) H 05/14/18 00:50 MCH 27.2 pg (28.0-33.3) L 05/14/18 00:50 RDW 15.4 % (11.5-14.5) H 05/14/18 00:50 Plt Count 450 K/mcL (140-400) H D 05/14/18 00:50 Immature Gran % 4.9 % (0-4) H 05/14/18 00:50 Neutrophils # 12.0 K/mcL (1.6-8.9) H 05/14/18 00:50 Immature Plt Fraction 9.3 % (1.1-6.1) H 05/11/18 05:30 PT 15.3 Seconds (9.4-12.1) H 05/06/18 18:40 ABG pO2 80 mmHg (85-104) L 05/11/18 01:05 ABG Total CO2 28 mEq/L (20-26) H 05/11/18 01:05 Glucose 112 mg/dL (70-105) H 05/11/18 05:30 POC Glucose 143 mg/dL (70-99) H 05/08/18 19:22 Magnesium 1.1 mg/dL (1.6-2.6) L 05/06/18 18:40 Total Bilirubin 2.8 mg/dL (0.3-1.0) H 05/07/18 07:57 Direct Bilirubin 1.5 mg/dL (0.0-0.2) H 05/06/18 18:40 Indirect Bilirubin 1.7 mg/dL (0.0-1.2) H 05/06/18 18:40 Troponin I 0.05 ng/mL (< 0.04) H* 05/07/18 10:56 Serum Total Protein 5.2 g/dL (6.4-8.9) L 05/07/18 07:57 Albumin 2.9 g/dL (3.5-5.7) L 05/07/18 07:57 Globulin 2.3 g/dL (2.4-3.5) L 05/07/18 07:57 Ur Specific [place] 1.026 (1.010-1.025) H 05/09/18 00:50 Urine Protein 30 mg/dL (Neg-Trace) H 05/09/18 00:50 Urine Microscopic RBC 5-15 per hpf (0-3) H 05/09/18 00:50 Urine Microscopic WBC 3-5 per hpf (0-3) H 05/09/18 00:50 Ur Squamous Epith Cells Moderate per lpf (None-Few) H 05/09/18 00:50 Ur Culture Indicated? NO. (NO) A 05/06/18 20:03 Urine Opiates Screen Positive ng/mL (Iqbnzi=572) H 05/06/18 20:03 U Benzodiazepines Scrn Positive ng/mL (Joojmq=619) H 05/06/18 20:03 U Marijuana (THC) Screen Positive ng/mL (Cutoff = 50) H 05/06/18 20:03 - Diagnostic Findings Chest x-ray: report reviewed, image reviewed - Clinical Findings Intake & Output: Intake & Output 05/13/18 05/13/18 05/14/18 15:59 23:59 07:59 Intake Total 1033 / 1033 360 / 360 0 / 0 Output Total 400 / 400 600 / 600 0 / 0 Balance 633 / 633 -240 / -240 0 / 0 Weight 76.3 kg Consult Discharge Plan - Plan Referrals: Wayne Schneider MD [Primary Care Provider] - 05/16/18 11:15 am
[2018-05-14] MEDS: Aspirin Enteric Coated 81 MG Tablet PO SCH (08:37)
[2018-05-14] MEDS: Methylphenidate HCl 10 MG TABLET PO SCH (08:37)
[2018-05-14] MEDS: Propranolol LA (24 HR) 60 MG CAP.SA.24H PO SCH (08:37)
[2018-05-14] MEDS: Lactobacillus 1 EACH CAP.SPRINK PO SCH (08:37)
[2018-05-14] MEDS: Niacin (24 HR) 500 MG TAB.ER.24H PO SCH (08:37)
[2018-05-14] MEDS: Magnesium Oxide 400 MG TABLET PO SCH (08:37)
[2018-05-14] MEDS: Exemestane [Aromasin] 25 MG PO SCH (08:51)
[2018-05-14] MEDS: *HR* LORazepam 1 MG TABLET PO PRN (08:56)
[2018-05-14] MEDS ORDERED: cefTRIAXone 1,000 MG in Water for inj. (sterile) 20 ML 10 ML IVP SCH (09:00)
[2018-05-14 09:21] LABS: BUN/Creatinine Ratio 18 (6-26); Blood Urea Nitrogen 13 mg/dL (8-23); Calcium 9.5 mg/dL (8.6-10.3); Carbon Dioxide 30 mEq/L (23-29); Chloride 100 mEq/L (98-107); Glucose 228 mg/dL (70-105); Osmolality,Calculated 295 (280-300); Potassium 3.9 mEq/L (3.5-5.1); Sodium 139 mEq/L (136-145); eGFR For Non-African Americans > 60 (> 60)
[2018-05-14] MEDS: Budesonide/Formoterol 160/4.5 1 PUFF INH IH SCH (11:15)
[2018-05-14 11:27] VITALS: BP 159/95
--- NOTE | 2018-05-14 12:48 | Discharge Summary ---
- NOTES TO OUTPATIENT PROVIDER Notes to Outpatient Provider: To get 2 more days of antibiotic to finish 10 day course. Follow-up CT scan for resolution of right upper lobe pneumonia in 4-6 week. Likely has COPD. started on Solu-Medrol which is to be continued for next 2 weeks with taper. Also started on Symbicort twice a day and as needed albuterol. To follow-up with pulmonology for PFT testing. Also started on hCTZ for elevated BP and diastolic dysfunction and volume overload. Follow-up electrolytes within 1-2 week. Also to follow-up with pulmonology and cardiology. Date of Encounter: 05/14/18 Time of Encounter: 12:23 - Discharge Diagnosis (1) Right upper lobe pneumonia Priority: Primary Status: Acute Qualifiers: Pneumonia type: due to unspecified organism Qualified Code(s): J18.1 - Lobar pneumonia, unspecified organism (2) Elevated troponin Priority: Primary Status: Acute (3) Sepsis Priority: Primary Status: Resolved Qualifiers: Sepsis type: sepsis due to unspecified organism Qualified Code(s): A41.9 - Sepsis, unspecified organism (4) UTI (urinary tract infection) Priority: Secondary Status: Resolved Qualifiers: Urinary tract infection type: acute cystitis Hematuria presence: with hematuria Qualified Code(s): N30.01 - Acute cystitis with hematuria (5) Hypertension Priority: Secondary Status: Chronic Qualifiers: Hypertension type: essential hypertension Qualified Code(s): I10 - Essential (primary) hypertension (6) Hyperlipidemia Priority: Secondary Status: Chronic Qualifiers: Hyperlipidemia type: unspecified Qualified Code(s): E78.5 - Hyperlipidemia , unspecified (7) Altered mental status Priority: Secondary Status: Acute Qualifiers: Altered mental status type: disorientation Qualified Code(s): R41.0 - Disorientation, unspecified (8) Hypokalemia Priority: Secondary Status: Acute (9) DVT prophylaxis Priority: Secondary Status: Acute (10) COPD with exacerbation Priority: Primary Status: Acute (11) Diastolic dysfunction Priority: Primary Status: Acute Hospital course: Ms. Dietrich is a 78 year old female with PMHx of HTN, Depression,HLD came with for AMS was found to RUL pneumonia and elevated Troponin. Head CT was normal Was treated empirically for pneumonia with Vancomyzin/Zosyn/Levaquin initiallity which was deescalated to levaquin. CT chest showed dense consolidation and pulmonary mass could not rule out. Given failure of resolution of symptoms with antibiotics pulmonary consult was obtained. Per equal opportunity specialist imaging consistent with pneumonia. Also possibly patient has COPD along with her CHF and pneumonia as a contributing factor. Patient was started on steroids, duonebs and Symbicort. TTE showed preserved EF but with diastolic dysfunction. Patient also got a few doses of Lasix. Patient did develop a rash on her back which was more follicular in nature. Started resolving the next day. Unknown etiology, could be drug rash or contact rash with the chair. Dermatology follow-up outpatient. Antibiotics was changed to cefdinir 300 twice a day for 2 more days to finish 10 day course. Patient would be discharged on home oxygen, prednisone taper, Solu-Medrol and HCTZ. Discharge discussed with: patient, nurse, homemaking rehabilitation consultant - Time Spent with Patient Total time spent providing and/or coordinating discharge services: Greater than 30 minutes - Discharge Medications Prescriptions: Albuterol Sulfate [Albuterol Inhaler] 1 puff IH Q6HR PRN 30 Days #1 inh PRN Reason: Shortness Of Breath Aspirin Enteric Coated [Aspirin EC] 81 mg PO DAILY 30 Days #30 tablet. Budesonide/Formoterol 160/4.5 [Symbicort 160/4.5] 2 puff IH BIDR 30 Days #1 inh Cefdinir [Omnicef] 300 mg PO BID 2 Days #4 capsule Hydrochlorothiazide [Microzide] 12.5 mg PO DAILY 30 Days #30 capsule predniSONE [PredniSONE] See Taper PO DAILY 15 Days #35 tablet Home Medications: ARIPiprazole [Abilify] 2 mg PO DAILY 12/26/16 [History] Cholecalciferol (D-3) [Vitamin D] 1,000 unit PO DAILY 12/26/16 [History] Flaxseed Oil 1,000 mg PO DAILY 12/26/16 [History] LORazepam [Ativan] 2 mg PO BID 12/26/16 [History] Lansoprazole [Prevacid] 15 mg PO BIDAC 12/26/16 [History] Magnesium Oxide [Magnesium] 400 mg PO DAILY 12/26/16 [History] Niacin [Niaspan] 500 mg PO BID 12/26/16 [History] Propranolol HCl [Innopran Xl] 120 mg PO BID 12/26/16 [History] Topiramate [Topamax] 25 mg PO DAILY 12/26/16 [History] Exemestane [Aromasin] 25 mg PO DAILY #90 tablet 09/04/17 [Rx] Buspirone HCl [Buspar] 15 mg PO BID 05/06/18 [History] Methylphenidate HCl [Ritalin] 10 mg PO DAILY 05/06/18 [History] SUMAtriptan succinate [Imitrex] 50 mg PO DAILY PRN 05/06/18 [History] Albuterol Sulfate [Albuterol Inhaler] 1 puff IH Q6HR PRN 30 Days #1 inh [Rx] Aspirin Enteric Coated [Aspirin EC] 81 mg PO DAILY 30 Days #30 tablet.dr [Rx] Budesonide/Formoterol 160/4.5 [Symbicort 160/4.5] 2 puff IH BIDR 30 Days #1 inh 05/14/18 [Rx] Cefdinir [Omnicef] 300 mg PO BID 2 Days #4 capsule 05/14/18 [Rx] Hydrochlorothiazide [Microzide] 12.5 mg PO DAILY 30 Days #30 capsule 05/14/18 [ Rx] predniSONE [PredniSONE] See Taper PO DAILY 15 Days #35 tablet 05/14/18 [Rx] Allergies/Adverse Reactions: 3 Allergy/AdvReac Type Severity Reaction Status Date / Time No Known Allergies Allergy Verified 05/06/18 18:08 Date of admission: 05/07/18 15:08 Primary care physician: Wayne Schneider MD Consults: 05/10/18 23:33 Consult to Respiratory Therapy [CONS] Routine Reason for Consult: Add flutter valve to patient breathing Tx Call Completed: Yes 05/11/18 21:00 Consult to Wound Care [CONS] Routine Reason for Consult: Patient has redness to buttocks. Please assess for daily wound care regimen. Call Completed: No 05/13/18 12:05 Consult to Pulmonology [CONS] Routine Consulting Provider: [facility] Reason for Consult: Shortness of breath Call Completed: Yes Discharging clinician: Justina Corbett Reynolds - Constitutional Vitals: Temp Pulse Resp BP Pulse Ox 98.1 F 87 18 159/95 95 05/14/18 07:12 05/14/18 11:26 05/14/18 11:26 05/14/18 11:26 05/14/18 11:26 General appearance: Present: A&O X 3, no acute distress Exam: General: Well nourished, well developed Head: Atraumatic, normocephalic Heart: RRR, no murmurs rubs or gallops Lungs: Rt upper lung field bronchial sounds with decreased air entry and rhonchi. Some rales at bases. Abdomen: Soft, nontender Neuro: No focal deficits Extremities: Pulses 2/4 throughout. No edema Skin: Dry and intact. punctate skin rash noted on back. - Patient Status Disposition: Home, Self-Care Condition: Good - Discharge Instructions Instructions: Hydrochlorothiazide (By mouth), Albuterol (By breathing), Prednisone (By mouth), Aspirin (By mouth), Cefdinir (By mouth), Budesonide/ Formoterol (By breathing), Urinary Tract Infection in Women (DC), Chronic Obstructive Pulmonary Disease (DC), Bacterial Pneumonia (DC) Follow Up With: Wayne Schneider MD [Primary Care Provider] - 05/16/18 11:15 am Kimberly Abreu CNP [Partnered Physician] - ("Will coordinate outpatient follow -up with [facility] in 2-3 weeks" per Kimberly Abreu CNP. Their office will call you with appt date & time.) Collin Lloyd MD [Partnered Physician] - (office will call patient at home with appointment date and time To follow-up with pulmonology for PFT testing) Additional Instructions: Follow-up CT scan for resolution of right upper lobe pneumonia in 4-6 week. Please have your physician schedule this. Take this paper with you to your appt to remind them. Follow-up electrolytes within 1-2 week. Lab slip given to you. Take this with you to the lab. - Diet and Activity Activity: return to work once cleared by your PCP/specialist, wear oxygen at all times
== END 2018-05-14 17:37 | disposition home or self-care (01) | DRG 871 ==
LOC: 2NENU 17:52 → EMEROOARM 17:52 → 2NENU 21:14 → SUATTDRO 05-07 15:08
PROVIDERS: ADMIT Internal Medicine; ATTEND Internal Medicine